=== PATIENT | male | born 1975 | race African-American/Black ===

== ENCOUNTER 2016-08-16 18:59 | Inpatient (IN) | payer OTHER ==
[2016-08-16 19:41] LABS: ABSOLUTE BASOPHILS # (AUTO) 0.1 10^3/uL (0.0-0.2); ABSOLUTE EOSINOPHILS # (AUTO) 0.2 10^3/uL (0.0-0.6); ABSOLUTE LYMPHOCYTES (AUTO) 2.1 10^3/uL (0.5-4.7); ABSOLUTE MONOCYTES (AUTO) 0.4 10^3/uL (0.1-1.4); EOSINOPHILS % (AUTO) 3.1 % (0-6); HEMATOCRIT 45.6 % (37.9-51.0); HEMOGLOBIN 14.9 g/dL (13.5-17.0); HGB HCT DIFFERENCE -0.9; LYMPHOCYTES % (AUTO) 27.2 % (13-45); MEAN CORPUSCULAR HEMOGLOBIN 28.1 pg (27.0-33.4); MEAN CORPUSCULAR HGB CONC 32.7 g/dL (32.0-36.0); MEAN CORPUSCULAR VOLUME 86 fl (80-97); MONOCYTES % (AUTO) 4.5 % (3-13); RED CELL DISTRIBUTION WIDTH 13.9 % (11.5-14.0); SEGMENTED NEUTROPHILS % (AUTO) 64.2 % (42-78); WHITE BLOOD COUNT 7.9 10^3/uL (4.0-10.5)
[2016-08-16] MEDS ORDERED: ASPIRIN 325 MG TABLET PO ONE (19:44)
[2016-08-16 19:47] LABS: PROTHROMBIN TIME 13.5 SEC (11.4-15.4)
[2016-08-16 19:48] LABS: ALBUMIN 4.3 g/dL (3.5-5.0); ANION GAP 11 (5-19); CARBON DIOXIDE 26 mmol/L (22-30); CHLORIDE 105 mmol/L (98-107); CREATININE RESULT 1.11 mg/dL (0.52-1.25); GLUCOSE 101 mg/dL (75-110); PARTIAL THROMBOPLASTIN TIME 34.1 SEC (23.5-35.8); POTASSIUM 4.2 mmol/L (3.6-5.0); SODIUM 141.9 mmol/L (137-145); TOTAL PROTEIN 7.7 g/dL (6.3-8.2)
[2016-08-16 19:50] LABS: ALANINE AMINOTRANSFERASE 79 U/L (21-72); ALKALINE PHOSPHATASE 66 U/L (38-126); ASPARTATE AMINO TRANSFERASE 79 U/L (17-59); BILIRUBIN,DIRECT 0.3 mg/dL (0.0-0.4); BILIRUBIN,TOTAL 0.8 mg/dL (0.2-1.3); BLOOD UREA NITROGEN 18 mg/dL (7-20); CALCIUM 9.9 mg/dL (8.4-10.2); LIPASE 325.9 U/L (23-300)
--- NOTE | 2016-08-16 19:51 | RADIOLOGY REPORT (SQ) ---
EXAM DESCRIPTION: CHEST SINGLE VIEW COMPLETED DATE/TIME: 08/16/2016 7:42 pm REASON FOR STUDY: SOB COMPARISON: 06/09/2014 EXAM PARAMETERS: NUMBER OF VIEWS: One view. TECHNIQUE: Single frontal radiographic view of the chest acquired. RADIATION DOSE: NA LIMITATIONS: None. FINDINGS: LUNGS AND PLEURA: No opacities, masses or pneumothorax. No pleural effusion. MEDIASTINUM AND HILAR STRUCTURES: No masses. Contour normal. HEART AND VASCULAR STRUCTURES: Heart normal in size. Normal vasculature. BONES: No acute findings. HARDWARE: None in the chest. OTHER: No other significant finding. IMPRESSION: NO ACUTE RADIOGRAPHIC FINDING IN THE CHEST. TECHNICAL DOCUMENTATION: JOB ID: [id number]
[2016-08-16 20:00] LABS: TROPONIN I 0.019 ng/mL
[2016-08-16] MEDS ORDERED: METOPROLOL TARTRATE 25 MG TABLET PO ONE (20:07)
[2016-08-16 20:09] LABS: CREATINE KINASE 4254 U/L (55-170)
[2016-08-16] MEDS ORDERED: NORMAL SALINE 1000 ML 1,000 ML IV PRN (20:15)
[2016-08-16 20:52] LABS: URINE BARBITURATES SCREEN NEGATIVE; URINE METHADONE SCREEN NEGATIVE; URINE OPIATES LOW NEGATIVE; URINE PHENCYCLIDINE SCREEN NEGATIVE
--- NOTE | 2016-08-16 21:12 | RADIOLOGY REPORT (SQ) ---
EXAM DESCRIPTION: CTA CHEST COMPLETED DATE/TIME: 08/16/2016 9:01 pm REASON FOR STUDY: SOB COMPARISON: None. TECHNIQUE: CT scan of the chest performed using helical scanning technique with dynamic intravenous contrast injection. Images reviewed with lung, soft tissue and bone windows. Reconstructed coronal and sagittal MPR images reviewed. Additional 3 dimensional post-processing performed to develop Maximal Intensity Projection images (IA P). All images stored on PACS. All CT scanners at this facility use dose modulation, iterative reconstruction, and/or weight based d osing when appropriate to reduce radiation dose to as low as reasonably achievable (ALARA). [facility]: Dose Right [facility]: CareDose [facility]: Dose Right [facility]: Teradose 4D [facility]: [employer] [place] CONTRAST TYPE AND DOSE: contrast/concentration: Isovue 370.00 mg/ml; Total Contrast Delivered: 82.0 ml; Total Saline Delivered: 100.0 ml RENAL FUNCTION: BUN 18, creatinine 1.11 RADIATION DOSE: Up-to-date CT equipment and radiation dose reduction techniques were employed. CTDIv ol: 18.3 - 24.8 mGy. DLP: 701 mGy-cm. . LIMITATIONS: None. FINDINGS: LUNGS AND PLEURA: No masses, infiltrates, pneumothorax. No pleural effusions, calcificati ons. AORTA AND GREAT VESSELS: No aneurysm or dissection. HEART: No pericardial effusion. PULMONARY ARTERIES: No emboli visualized in the main pulmonary arteries or the segmental branches. HILAR AND MEDIASTINAL STRUCTURES: No identified masses or abnormal nodes. HARDWARE: None in the chest. UPPER ABDOMEN: No significant findings. Limited exam. THYROID AND OTHER SOFT TISSUES: No masses. No adenopathy. BONES: No acute or significant finding. 3D MIPS: Confirm above findings. OTHER: No other significant finding. IMPRESSION: NORMAL CTA OF THE CHEST. NO PULMONARY EMBOLI. TECHNICAL DOCUMENTATION: JOB ID: [id number] Quality ID # [id number]: Final reports with documentation of one or more dose reduction techniques (e.g., Au tomated exposure control, adjustment of the mA and/or kV according to patient size, use of iterative reconstruction technique) 2010 [employer]- All Rights Reserved
--- NOTE | 2016-08-16 21:30 | ER Document Report ---
ED Cardiac - General Chief Complaint: Shortness Of Breath Stated Complaint: SHORTNESS OF BREATH,TIGHT CHEST Time Seen by Provider: 08/16/16 19:31 Notes: Patient is a 41-year-old male, past medical history hypertension, HLD, SVT (s/p ablation), presents with 2 hours of left-sided chest tightness and shortness of breath that started while he was at rest. Chest pain did not radiate anywhere. He said that when he arrived, his chest pain improved, but he is still feeling short of breath. He is also having generalized myalgias, worse in his left knee. He started jogging recently. Pt is following with Dr. Chauhan for his prior SVT and HTN and he was started on Nisolvine 20 mg daily, but hasn't picked it up from the pharmacy yet. He denies leg swelling, fevers, cough, nausea, vomiting, cocaine use, hemoptysis, recent travel or rash. TRAVEL OUTSIDE OF THE [place] IN LAST 30 DAYS: No - Related Data Allergies/Adverse Reactions: ibuprofen [Ibuprofen] Allergy (Verified 06/09/14 19:05) Home Medications: Current Home Medications Atorvastatin Calcium [Lipitor 40 mg Tablet] 40 mg PO QHS 08/16/16 [History] Buspirone HCl [Buspar 5 mg Tablet] 7.5 mg PO DAILY 08/16/16 [History] Nisoldipine 20 mg PO DAILY 08/16/16 [History] Past Medical History - General Information source: Patient - Social History Smoking Status: Current Every Day Smoker Chew tobacco use (# tins/day): No Frequency of alcohol use: None Drug Abuse: None Family History: Reviewed & Not Pertinent - Past Medical History Cardiac Medical History: Reports: Hx Hypertension GI Medical History: Reports: Hx Gastroesophageal Reflux Disease - Immunizations Hx Diphtheria, Pertussis, Tetanus Vaccination: No Review of Systems - Review of Systems Notes: REVIEW OF SYSTEMS: CONSTITUTIONAL: -fevers, -chills EENT: -eye pain, -difficulty swallowing, -nasal congestion CARDIOVASCULAR:+chest pain, -syncope. RESPIRATORY: -cough, +SOB GASTROINTESTINAL: -abdominal pain, -nausea, -vomiting, -diarrhea GENITOURINARY: -dysuria, -hematuria MUSCULOSKELETAL: +myalgias, -back pain, -neck pain SKIN: -rash or skin lesions. HEMATOLOGIC: -easy bruising or bleeding. LYMPHATIC: -swollen, enlarged glands. NEUROLOGICAL: -altered mental status or loss of consciousness, -headache, - neurologic symptoms PSYCHIATRIC: -anxiety, -depression. ALL OTHER SYSTEMS REVIEWED AND NEGATIVE. Physical Exam - Vital signs Vitals: Resp Pulse Ox 31 H 97 08/16/16 19:22 08/16/16 19:22 - Notes Notes: PHYSICAL EXAMINATION: GENERAL: Well-appearing, well-nourished and in no acute distress. HEAD: Atraumatic, normocephalic. EYES: Pupils equal round and reactive to light, extraocular movements intact, sclera anicteric, conjunctiva are normal. ENT: nares patent, oropharynx clear without exudates. Moist mucous membranes. NECK: Normal range of motion, supple without lymphadenopathy LUNGS: Breath sounds clear to auscultation bilaterally and equal. No wheezes rales or rhonchi. HEART: Tachycardic, regular rhythm ABDOMEN: Soft, nontender, normoactive bowel sounds. No guarding, no rebound. No masses appreciated. EXTREMITIES: Normal range of motion, no pitting or edema. No cyanosis. NEUROLOGICAL: Cranial nerves grossly intact. Normal speech, normal gait. Normal sensory and motor exams. PSYCH: Normal mood, normal affect. SKIN: Warm, Dry, normal turgor, no rashes or lesions noted. Course - Re-evaluation Re-evalutation: Pt with chest pain, shortness of breath and tachycardia. His EKG shows new right bundle branch block, sinus tachycardia and LVH, which is changed compared to his EKG 06/09/2014. First troponin is negative. CTA ordered due to high concern for PE, but no PE was visualized. CPK is in 4,000's, but his renal function is normal. Cocaine negative. The elevated CPK may be related to recent heavy jogging. Pt has a HEART score of 4. Improved after he was given a dose of metoprolol. We do not have his new BP med, Nisolvine. Pt has never had a stress test. He had an echo at the [facility] last week and was supposed to have an echo at Dr. Chauhan's offica also last week that he was unable to make. Symptoms aypical for aortic dissection at this time. His PMD is Dr. Daugherty and his Security Assessor is Dr. Chauhan. 08/16/16 22:[address] Brunson (Hospitalist) and will bring patient in for Obs Tele. - Vital Signs Vital signs: Temp Pulse Resp BP Pulse Ox 98.4 F 94 25 H 173/104 H 90 L 08/16/16 19:37 08/16/16 19:42 08/16/16 22:02 08/16/16 22:02 08/16/16 22:02 - Laboratory Result Diagrams: 08/16/16 19:23 08/16/16 19:23 Laboratory results interpreted by me: 08/16/16 08/16/16 19:23 19:23 AST 79 H ALT 79 H Creatine Kinase 4254 H NT-Pro-B Natriuret Pep 502 H Lipase 325.9 H - Diagnostic Test Radiology reviewed: Image reviewed, Reports reviewed Radiology results interpreted by me: CXR: NAD CTA Chest: No PE - EKG Interpretation by Me EKG shows normal: Sinus rhythm Rate: Tachycardia - 103 Rhythm: NSR Hayti/QRS: RBBB Voltage: Consistant with LVH When compared to previous EKG there are: Changes noted - 06/09/2014 Discharge - Discharge Clinical Impression: Chest pain Qualifiers: Chest pain type: unspecified Qualified Code(s): R07.9 - Chest pain, unspecified Rhabdomyolysis Qualifiers: Rhabdomyolysis type: non-traumatic Qualified Code(s): M62.82 - Rhabdomyolysis Condition: Stable Disposition: ADMITTED OBSERVATION Admitting Provider: Lluvia Brunson Unit Admitted: Telemetry Referrals: CARLOS CHAUHAN MD [Primary Care Provider] - Follow up as needed
--- NOTE | 2016-08-16 22:29 | RADIOLOGY REPORT (SQ) ---
EXAM DESCRIPTION: KNEE LEFT 3 VIEWS COMPLETED DATE/TIME: 08/16/2016 10:21 pm REASON FOR STUDY: left knee pain when running COMPARISON: None. NUMBER OF VIEWS: Four views. TECHNIQUE: AP, lateral, and both oblique radiographic images acquired of the left knee. LIMITATIONS: None. FINDINGS: MINERALIZATION: Normal. BONES: No acute fracture or dislocation. No worrisome bone lesions. JOINT: No effusion. SOFT TISSUES: No soft tissue swelling. No radio-opaque foreign body. OTHER: No other significant finding. IMPRESSION: NEGATIVE STUDY OF THE LEFT KNEE. NO RADIOGRAPHIC EVIDENCE OF ACUTE INJURY. TECHNICAL DOCUMENTATION: JOB ID: [id number] [employer]- All Rights Reserved
[2016-08-16] MEDS ORDERED: NITROGLYCERIN 5 MG (0.2 MG/HR) PATCH.TD24 TD ONE (22:30)
[2016-08-16] MEDS: NORMAL SALINE 1000 ML 1,000 ML IV SCH ×2 (22:34→23:54)
[2016-08-16] MEDS ORDERED: ENALAPRIL MALEATE 2.5 MG TABLET ONE (22:35)
[2016-08-16 23:25] LABS: CREATINE KINASE MB 1.41 ng/mL (<4.55); TROPONIN I 0.021 ng/mL
--- NOTE | 2016-08-17 00:10 | PDOC H&P ---
History of Present Illness Admission Date/PCP: CARLOS BROWN MD Patient complains of: Shortness of breath and chest pain History of Present Illness: KHUSHI CARTWRIGHT is a 41 year old male with a past medical history of hypertension, dyslipidemia, obesity and obstructive sleep apnea who had been in his usual state of health until approximately 6 hours prior to presentation developing a nonradiating pressure like pain in the left chest associated with shortness of breath worsened by lying down. Improved by sitting up and oxygen. He is currently pain-free patient denies any recent change in medications. Patient has been taking his blood pressure at home with readings of over 200 systolic and 120s diastolic. He states this is his normal pressure for several years. He only takes amlodipine for blood pressure. In the emergency room was found to have a blood pressure of 180/101 and a chest x-ray suggestive of congestive heart failure he receives IV diuretic and referred the hospitalist for admission. Patient admits CPAP compliance, denies [id number] medication use, alcohol or diet supplements. Past Medical History Cardiac Medical History: Reports: Hypertension Pulmonary Medical History: Reports: Sleep Apnea Endocrine Medical History: Reports: Obesity GI Medical History: Reports: Gastroesophageal Reflux Disease Social History Information Source: Patient Lives with: Spouse/Significant other Smoking Status: Former Smoker Frequency of Alcohol Use: Occasional Hx Recreational Drug Use: No Hx Prescription Drug Abuse: No - Advance Directive Resuscitation Status: Full Code Family History Family History: CAD, Hypertension, Other - Congestive heart failure Parental Family History Reviewed: Yes Children Family History Reviewed: Yes Sibling(s) Family History Reviewed.: Yes Medication/Allergy Home Medications: Atorvastatin Calcium [Lipitor 40 mg Tablet] 40 mg PO QHS 08/16/16 Buspirone HCl [Buspar 5 mg Tablet] 7.5 mg PO DAILY 08/16/16 Nisoldipine 20 mg PO DAILY 08/16/16 Allergies/Adverse Reactions: ibuprofen [Ibuprofen] Allergy (Verified 06/09/14 19:05) Review of Systems Constitutional: ABSENT: chills, fever(s), headache(s), weight gain, weight loss Eyes: ABSENT: visual disturbances Ears: ABSENT: hearing changes Cardiovascular: PRESENT: chest pain, dyspnea on exertion, orthropnea. ABSENT: edema, palpitations Respiratory: PRESENT: dyspnea. ABSENT: cough, hemoptysis, sputum Gastrointestinal: ABSENT: abdominal pain, constipation, diarrhea, hematemesis, hematochezia, nausea, vomiting Genitourinary: ABSENT: dysuria, hematuria Musculoskeletal: ABSENT: joint swelling Integumentary: ABSENT: rash, wounds Neurological: ABSENT: abnormal gait, abnormal speech, confusion, dizziness, focal weakness, syncope Psychiatric: ABSENT: anxiety, depression, homidical ideation, suicidal ideation Endocrine: ABSENT: cold intolerance, heat intolerance, polydipsia, polyuria Hematologic/Lymphatic: ABSENT: easy bleeding, easy bruising Physical Exam Vital Signs: Temp Pulse Resp BP Pulse Ox 98.4 F 94 19 183/109 H 95 08/16/16 19:37 08/16/16 19:42 08/16/16 22:32 08/16/16 22:32 08/16/16 22:32 Intake & Output 08/15/16 08/16/16 08/17/16 11:59 11:59 11:59 Weight 105 kg General appearance: PRESENT: cooperative, mild distress Head exam: PRESENT: atraumatic, normocephalic Eye exam: PRESENT: conjunctiva pink, EOMI, PERRLA. ABSENT: scleral icterus Ear exam: PRESENT: normal external ear exam Mouth exam: PRESENT: moist, tongue midline Neck exam: ABSENT: carotid bruit, JVD, lymphadenopathy, thyromegaly Respiratory exam: PRESENT: clear to auscultation juan, crackles, symmetrical, tachypnea. ABSENT: chest wall tenderness, rales, rhonchi, wheezes Cardiovascular exam: PRESENT: gallop, RRR, +S1, +S2, systolic murmur GI/Abdominal exam: PRESENT: normal bowel sounds, soft. ABSENT: distended, guarding, mass, organolmegaly, rebound, tenderness Rectal exam: PRESENT: deferred Extremities exam: PRESENT: calf tenderness - Left calf tenderness following excessive exercise without edema or pain behind the knee, tenderness. ABSENT: + 1 edema, +2 edema Neurological exam: PRESENT: alert, awake, oriented to person, oriented to place , oriented to time, oriented to situation, CN II-XII grossly intact. ABSENT: motor sensory deficit Psychiatric exam: PRESENT: appropriate affect, normal mood. ABSENT: homicidal ideation, suicidal ideation Skin exam: PRESENT: dry, intact, warm. ABSENT: cyanosis, rash Results Laboratory Results: 08/16/16 19:23 08/16/16 19:23 08/16/16 08/16/1617 19:23 19:23 19:50 WBC 7.9 RBC 5.30 Hgb 14.9 Hct 45.6 MCV 86 MCH 28.1 MCHC 32.7 RDW 13.9 Plt Count 310 Seg Neutrophils % 64.2 Lymphocytes % 27.2 Monocytes % 4.5 Eosinophils % 3.1 Basophils % 1.0 Absolute Neutrophils 5.0 Absolute Lymphocytes 2.1 Absolute Monocytes 0.4 Absolute Eosinophils 0.2 Absolute Basophils 0.1 Sodium 141.9 Potassium 4.2 Chloride 105 Carbon Dioxide 26 Anion Gap 11 BUN 18 Creatinine 1.11 Est GFR ( Amer) > 60 Est GFR (Non-Af Amer) > 60 Glucose 101 Lactic Acid 1.3 Calcium 9.9 Total Bilirubin 0.8 AST 79 H ALT 79 H Alkaline Phosphatase 66 Total Protein 7.7 Albumin 4.3 Lipase 325.9 H 08/16/16 08/16/16 08/16/16 19:23 19:23 22:52 Creatine Kinase 4254 H CK-MB (CK-2) 1.41 Troponin I 0.019 0.021 NT-Pro-B Natriuret Pep 502 H Impressions: Chest X-Ray 08/16/16 19:32 IMPRESSION: NO ACUTE RADIOGRAPHIC FINDING IN THE CHEST. Chest/Abdomen CTA 08/16/16 19:32 IMPRESSION: NORMAL CTA OF THE CHEST. NO PULMONARY EMBOLI. Knee X-Ray 08/16/16 21:56 IMPRESSION: NEGATIVE STUDY OF THE LEFT KNEE. NO RADIOGRAPHIC EVIDENCE OF ACUTE INJURY. Assessment & Plan - Diagnosis (1) Hypertensive urgency Is this a current diagnosis for this admission?: YesPlan: Patient on a single agent with suboptimal control will initiate JORGE LUIS inhibitor and hydralazine and consider loop diuretic. (2) Chest pain Qualifiers: Chest pain type: unspecified Qualified Code(s): R07.9 - Chest pain, unspecified Is this a current diagnosis for this admission?: YesPlan: Likely secondary to uncontrolled hypertension however has a EKG suggestive of strain but also with inferior Q-waves, will order Cardiolite cardiac stress test , evaluate TSH and lipid profile. (3) Rhabdomyolysis Qualifiers: Rhabdomyolysis type: non-traumatic Qualified Code(s): M62.82 - Rhabdomyolysis Is this a current diagnosis for this admission?: YesPlan: Secondary to left calf strain following excessive exercise and muscle strain. Symptomatic management, IV fluids reevaluation of total CK and chemistry to verify renal function (4) Obstructive sleep apnea Is this a current diagnosis for this admission?: YesPlan: CPAP at home settings (5) Obesity Is this a current diagnosis for this admission?: YesPlan: We will evaluate a TSH and consider dietitian consult for obesity - Time Time Spent: 30 to 50 Minutes
[2016-08-17] MEDS: HYDRALAZINE HCL INJ/PF 20 MG/1 ML SDV IV PRN ×2 (02:29→13:37)
[2016-08-17] MEDS ORDERED: ACETAMINOPHEN 325 MG TABLET ONE (04:10)
[2016-08-17] MEDS: ACETAMINOPHEN 325 MG TABLET PO PRN ×2 (04:11→15:16)
[2016-08-17] MEDS: NORMAL SALINE 1000 ML 1,000 ML IV SCH (05:11)
[2016-08-17 05:33] LABS: ANION GAP 10 (5-19); BLOOD UREA NITROGEN 17 mg/dL (7-20); CALCIUM 9.4 mg/dL (8.4-10.2); CARBON DIOXIDE 23 mmol/L (22-30); CHLORIDE 109 mmol/L (98-107); CHOLESTEROL 183.23 mg/dL (0-200); CREATININE RESULT 1.07 mg/dL (0.52-1.25); Direct HDL 44 mg/dL (>40); GLUCOSE 94 mg/dL (75-110); POTASSIUM 4.2 mmol/L (3.6-5.0); SODIUM 141.6 mmol/L (137-145); TRIGLYCERIDES 102 mg/dL (<150)
[2016-08-17 05:41] LABS: CREATINE KINASE 2302 U/L (55-170)
[2016-08-17 05:44] LABS: DIRECT LDL 103 mg/dL (<100)
[2016-08-17 05:45] LABS: CREATINE KINASE MB 1.51 ng/mL (<4.55); TROPONIN I 0.022 ng/mL
--- NOTE | 2016-08-17 08:43 | EKG REPORT ---
SEVERITY:- ABNORMAL ECG - SINUS TACHYCARDIA RIGHT BUNDLE BRANCH BLOCK LEFT VENTRICULAR HYPERTROPHY INFERIOR INFARCT, AGE INDETERMINATE : Confirmed by: Candis Lopez MD 17-Aug-2016 08:42:28
[2016-08-17 09:26] LABS: URINE BARBITURATES SCREEN NEGATIVE; URINE METHADONE SCREEN NEGATIVE; URINE OPIATES LOW NEGATIVE; URINE PHENCYCLIDINE SCREEN NEGATIVE
[2016-08-17] MEDS ORDERED: (PENDING PHARMACY ID) (Buspirone Hcl [Buspar 5 Mg Tablet] 7.5 MG) PO SCH (10:00)
[2016-08-17] MEDS: ENALAPRIL MALEATE 2.5 MG TABLET PO SCH (11:47)
[2016-08-17 11:49] LABS: CREATINE KINASE MB 1.53 ng/mL (<4.55); TROPONIN I 0.016 ng/mL
[2016-08-17] MEDS ORDERED: AMINOPHYLLINE INJ/PF 250 MG/10 ML SDV IV ONE (13:28)
[2016-08-17] MEDS ORDERED: REGADENOSON INJ 0.4 MG/5 ML DISP.SYRIN IV ONE (13:28)
--- NOTE | 2016-08-17 13:42 | DRAGON STRESS TEST REPORT ---
INTRAVENOUS LEXISCAN CARDIOLITE STRESS TEST USING SINGLE PHOTON EMMISION COMPUTERIZED TOMOGRAPHIC. DATE OF PROCEDURE: August 17, 2016 INDICATION : Chest pain and shortness of breath CARDIAC RISK FACTORS: Hypertension, dyslipidemia RESTING EKG: Sinus rhythm, right bundle branch block pattern, minor nonspecific T-wave changes STRESS EKG: No significant changes noted with LexiScan bolus REASON FOR TERMINATION: Protocol. PROCEDURE REPORT: Baseline heart rate 88 beats per minute with blood pressure of 179/94. Patient had no significant complaints. Heart rate at 2 minutes post bolus 105 with a blood pressure of 192/104. 3 minutes post bolus heart rate 95 with blood pressure of 190/104. No significant EKG changes were noted. Patient had no significant complaints during the procedure or postprocedure. Patient injected with Aminophyllin 75 mg at 3 minutes or later after Lexiscan bolus. CONCLUSIONS: Normal EKG and hemodynamic response to IV LexiScan. NUCLEAR DATA: At rest the patient was given 14.08 millicuries of technetium 99 sestamibi injected intravenously. As per protocol rest gated SPECT images were obtained. Subsequently the patient was given intravenous LexiScan at a dose of 0.4 mg in 5 mL intravenously, followed by flush with normal saline. Subsequently the stress dose of 45.6 millicuries of technetium 99 sestamibi was injected intravenously. As per protocol stress gated images were obtained. NUCLEAR INTERPRETATION: Both raw and processed data were used for interpretation. Visual, qualitative, computer-generated quantitative data was used. There was good myocardial uptake of technetium compound. Motion artifact and soft tissue attenuations were noted. Increased visceral uptake was noted. Significant diaphragmatic attenuation noted. No definitive areas of transient perfusion defect noted. Probable mild fixed defect distal inferior wall however could well be related to motion artifact and diaphragmatic attenuation. Clinical correlation requested. EKG gated imaging showed LV EF at 24 %, rest and stress gated EF similar visually with severe diffuse hypokinesia. T. I D. ratio was 1.20. Lung heart ratio noted to be within normal limits 0.26. No significant extracardiac and abnormal radiotracer activities were noted. RV free wall uptake was noted to be mildly increased. IMPRESSION: Also refer to comments under nuclear interpretation. Also test results needs to be interpreted in the context of pretest probability. 1. There is no definitive scintigraphic evidence of LexiScan induced myocardial ischemia. Significant diaphragmatic attenuation reduces confidence. 2. Probable mild fixed defect distal inferior wall however could well be related to motion artifact and diaphragmatic attenuation. Clinical correlation requested. 3. EKG gated imaging shows left ejection fraction of approximately 24 %. 4. Clinical correlation requested as occasionally single vessel disease or balanced ischemia could be missed. In approximately 10% of the cases Lexiscan may not cause adequate vasodilatory stress. RECOMMENDATIONS: Aggressive risk factor modification, medical therapy. May consider heart catheterization if significant symptoms because of significantly depressed LVEF. Clinical correlation with echocardiogram derived ejection fraction. Inability to exercise by itself can lead to increased cardiovascular event risks. Consider cardiology consultation and or follow-up if clinically indicated. I AM AVAILABLE FOR CARDIOLOGY CONSULTATION AND FOLLOWUP IF REQUESTED BY PMD Pool Santiago M.D., IAN Policy Service Coordinator mannequin mold maker, Board certified in cardiovascular diseases, Nuclear cardiology, Echocardiography Cardiac CT and cardiac MRI Ph. [phone] [facility]ALTH[facility]umiko
--- NOTE | 2016-08-17 14:49 | PDOC PROGRESS REPORT ---
Subjective Progress Note for:: 08/17/16 Subjective:: The patient is an extremely pleasant 41-year-old -[place] male with a past medical history significant for hypertension, dyslipidemia, obesity and obstructive sleep apne on CPAP therapy at home for which he is compliant a. He presented to the emergency room with nonradiating pressure and pain in the left anterior chest associated with shortness of breath. His shortness of breath was worse when he lied down. In the emergency room he was found to have evidence of accelerated hypertension. He was placed in observation in the hospital. Today he had a Cardiolite stress test performed which reveals a diminished ejection fraction but otherwise was unremarkable. He also had a 2D cardio cardiac echo echocardiogram performed which has not yet been read. I spoke to cardiology after his stress test and they would like to keep him in the hospital overnight for consultation as well as trying to get his blood pressure under better control. I discussed this with the patient and his and they are agreeable. Today when I saw the patient he is resting comfortably in the bed. He states his chest pressure is much improved. He did receive IV Lasix in the emergency room and he has had no further issues with shortness of breath. He is able to lay flat at this point. He has had no fever or chills overnight. No heart palpitations that he is aware of. He does not have a cough or any upper respiratory infection. He denies nausea, vomiting or diarrhea. No dysuria, frequency or hematuria. Physical Exam Vital Signs: Temp Pulse Resp BP Pulse Ox 97.9 F 80 16 177/96 H 100 08/17/16 12:30 08/17/16 12:30 08/17/16 12:30 08/17/16 12:30 08/17/16 12:30 General appearance: PRESENT: no acute distress, obese, well-developed, well- nourished Head exam: PRESENT: atraumatic, normocephalic Mouth exam: PRESENT: moist, neck supple Respiratory exam: PRESENT: clear to auscultation juan. ABSENT: accessory muscle use, chest wall tenderness, rales, rhonchi, wheezes Cardiovascular exam: PRESENT: RRR, +S1, +S2. ABSENT: diastolic murmur, gallop, rubs, systolic murmur GI/Abdominal exam: PRESENT: normal bowel sounds, soft. ABSENT: tenderness Extremities exam: ABSENT: calf tenderness, clubbing, pedal edema Musculoskeletal exam: PRESENT: ambulatory Neurological exam: PRESENT: alert, awake, oriented to person, oriented to place , oriented to time, oriented to situation Psychiatric exam: PRESENT: appropriate affect Skin exam: PRESENT: dry, warm Results Laboratory Results: 08/17/16 11:04 CK-MB (CK-2) 1.53 Troponin I 0.016 Impressions: Chest X-Ray 08/16/16 19:32 IMPRESSION: NO ACUTE RADIOGRAPHIC FINDING IN THE CHEST. Chest/Abdomen CTA 08/16/16 19:32 IMPRESSION: NORMAL CTA OF THE CHEST. NO PULMONARY EMBOLI. Knee X-Ray 08/16/16 21:56 IMPRESSION: NEGATIVE STUDY OF THE LEFT KNEE. NO RADIOGRAPHIC EVIDENCE OF ACUTE INJURY. Assessment & Plan - Diagnosis (1) Chest pain Qualifiers: Chest pain type: unspecified Qualified Code(s): R07.9 - Chest pain, unspecified Is this a current diagnosis for this admission?: YesPlan: The patient's chest discomfort is likely due to accelerated hypertension. His blood pressures remain significantly high. I am going to keep him in the hospital overnight to see if we can make some progress with this. His echocardiogram has not yet been read that he may have a somewhat diminished ejection fraction. Cardiology is being consulted. (2) Hypertensive urgency Is this a current diagnosis for this admission?: YesPlan: I spoke to Dr. Santiago from the cardiology service to has agreed to come see the patient here in the hospital. He will be started on carvedilol and amlodipine today. He will continue JORGE LUIS inhibitor that was started at the time of admission. Hopefully we can get his blood pressure a little bit better before he goes home. I have had a long discussion with the patient and his regarding the need to get this under better control. (3) Obesity Is this a current diagnosis for this admission?: YesPlan: Certainly he would benefit from weight loss. (4) Obstructive sleep apnea Is this a current diagnosis for this admission?: YesPlan: He is compliant with sleep CPAP therapy. He will likely need a repeat sleep study as an outpatient as his settings may need titration. Dr. Santiago can do this as an outpatient. (5) Rhabdomyolysis Qualifiers: Rhabdomyolysis type: non-traumatic Qualified Code(s): M62.82 - Rhabdomyolysis Is this a current diagnosis for this admission?: YesPlan: The patient had an elevated CK level at the time of admission. He did receive quite a bit of IV fluid. I stopped at this morning due to concerns that the patient may become volume overloaded. His repeat CK level was improved. I will check a CK level in the morning. He may require some further gentle hydration prior to leaving the hospital. For now we will hold off - Time Time Spent with patient: 25-34 minutes Medications reviewed and adjusted accordingly: Yes Anticipated discharge: Home Disposition: Inpatient hospitalization remains necessary. I believe this patient needs to be kept overnight again to get his blood pressure under better control. He was receiving IV fluids for rhabdomyolysis and he may require further fluid hydration. Due to concerns of decreased ejection fraction I am holding off on IV fluids tonight. He also needs cardiology evaluation.
[2016-08-17] MEDS ORDERED: CARVEDILOL 6.25 MG TABLET PO ONE (15:15)
[2016-08-17] MEDS ORDERED: AMLODIPINE BESYLATE 5 MG TABLET PO ONE (15:15)
--- NOTE | 2016-08-17 15:45 | Physician Advisory Note ---
Physician Advisor ProgressNote .: Pursuant to the plan for [facility], I have reviewed the medical record for this patient. Physician Advisor Statement: Excellent documentation of reason for needing continued hospital care. Please consider documentin. "Hypertensive Urgency" or "Hypertensive Emergency producing CP/___" or "Hypertensive Crisis": - "Hypertensive Urgency" requires urgent tx & BP's systolic >180 or diastolic >120. - "Hypertensive Emergency" requires those 2 points + symptoms &/or end-organ effects. - "Hypertensive Crisis" = umbrella term including both of the above 2 dx.s. Discussion: "Accelerated HTN" & "malignant HTN" were old terms that were the only ones recognized by the previous ICD-10 coding system as being something other than benign HTN, so documentation had to include them in order to get credit for the appropriate severity of illness. - However, as of 11/28/15, multiple codes were changed, requiring changes in how we document. Now: "Accelerated HTN" or malignant HTN is taken to mean the same thing as "benign HTN". If pt has mHU727+ &/or lKR408+ , without associated sx "HTNive urgency" is now the accepted term. If pt has jWL708+ &/or vTV656+ , & sx of possible organ damage, such as TOLENTINO, CP, SOB, acute exac of CHF, ... "Hypertensive emergency" is now the accepted term, & we need documentation of what s/s were caused by the HTN. Thanks for your help (& patience)! CK
[2016-08-17] MEDS ORDERED: NITROGLYCERIN 5 MG (0.2 MG/HR) PATCH.TD24 TD SCH (22:00)
[2016-08-18] MEDS: ACETAMINOPHEN 325 MG TABLET PO PRN (02:52)
[2016-08-18] MEDS: HYDRALAZINE HCL INJ/PF 20 MG/1 ML SDV IV PRN (03:55)
[2016-08-18] MEDS ORDERED: BUTALB/ACETAMINOPHEN/CAFFEINE 1 TAB EACH PO PRN (09:01)
[2016-08-18 09:03] LABS: ABSOLUTE BASOPHILS # (AUTO) 0.1 10^3/uL (0.0-0.2); ABSOLUTE EOSINOPHILS # (AUTO) 0.2 10^3/uL (0.0-0.6); ABSOLUTE LYMPHOCYTES (AUTO) 1.3 10^3/uL (0.5-4.7); ABSOLUTE MONOCYTES (AUTO) 0.4 10^3/uL (0.1-1.4); ABSOLUTE NEUT (AUTO) 5.9 10^3/uL (1.7-8.2); BASOPHILS % (AUTO) 1.2 % (0-2); EOSINOPHILS % (AUTO) 2.1 % (0-6); HEMATOCRIT 43.5 % (37.9-51.0); HEMOGLOBIN 14.2 g/dL (13.5-17.0); HGB HCT DIFFERENCE -0.9; LYMPHOCYTES % (AUTO) 16.2 % (13-45); MEAN CORPUSCULAR HEMOGLOBIN 27.9 pg (27.0-33.4); MEAN CORPUSCULAR HGB CONC 32.6 g/dL (32.0-36.0); MEAN CORPUSCULAR VOLUME 86 fl (80-97); MONOCYTES % (AUTO) 4.7 % (3-13); RED BLOOD COUNT 5.07 10^6/uL (4.35-5.55); RED CELL DISTRIBUTION WIDTH 14.2 % (11.5-14.0); SEGMENTED NEUTROPHILS % (AUTO) 75.8 % (42-78); WHITE BLOOD COUNT 7.7 10^3/uL (4.0-10.5)
[2016-08-18] MEDS: ENALAPRIL MALEATE 2.5 MG TABLET PO SCH (09:17)
[2016-08-18 09:21] LABS: ALANINE AMINOTRANSFERASE 65 U/L (21-72); ALBUMIN 4.3 g/dL (3.5-5.0); ALKALINE PHOSPHATASE 71 U/L (38-126); ANION GAP 11 (5-19); ASPARTATE AMINO TRANSFERASE 35 U/L (17-59); BILIRUBIN,DIRECT 0.3 mg/dL (0.0-0.4); BILIRUBIN,TOTAL 0.8 mg/dL (0.2-1.3); BLOOD UREA NITROGEN 15 mg/dL (7-20); CARBON DIOXIDE 22 mmol/L (22-30); CHLORIDE 106 mmol/L (98-107); CREATINE KINASE 844 U/L (55-170); CREATININE RESULT 1.02 mg/dL (0.52-1.25); GLUCOSE 98 mg/dL (75-110); POTASSIUM 4.5 mmol/L (3.6-5.0); SODIUM 139.3 mmol/L (137-145); TOTAL PROTEIN 7.6 g/dL (6.3-8.2)
--- NOTE | 2016-08-18 09:22 | XCELERA REPORT ---
[address] [address] Transthoracic Echocardiogram Report Name: KHUSHI CARTWRIGHT Age: 41 yrs Gender: Male : 1975 Patient Status: Inpatient Patient Location: [id number]\S\419\S\A Study Date: 08/17/2016 11:14 AM Height: 71 in Weight: 220 lb BSA: 2.2 m2 Procedure: A complete two-dimensional transthoracic echocardiogram was performed (2D, M-mode, spectral and color flow Doppler). The study was technically adequate with some images being suboptimal in quality. Reason For Study: baron horne, r/o chf Ordering Physician: NI JONES Performed By: Marjorie Coleman Interpretation Summary LV EF is 50% Left ventricular systolic function is borderline reduced. There is mild concentric left ventricular hypertrophy. The left ventricle is grossly normal size. Doppler measurements suggest pseudonormalized left ventricular relaxation, which is associated with grade II/IV or mild to moderate diastolic dysfunction There is borderline global hypokinesis of the left ventricle. The right ventricular systolic function is normal. The right ventricle is normal in size, thickness and function The left atrium is mildly dilated. The right atrium is normal in size There is a mild to moderate amount of mitral regurgitation There is no mitral valve stenosis. There is no aortic valve stenosis No aortic regurgitation is present. There is a trace or physiologic amount of tricuspid regurgitation Tricuspid regurgitation jet envelope not well defined to measure RV systolic pressure accurately. The aortic root is not well visualized but is probably normal size. The inferior vena cava appeared normal and decreased < 50% with respiration (RAP 10-15 mmHg) Minimal pericardial effusion. MMode/2D Measurements \T\ Calculations RVDd: 3.4 cm LVIDd: 5.4 cm FS: 26.7 % Ao root diam: 2.8 cm IVSd: 0.92 cm LVIDs: 3.9 cm EDV(Teich): 140.1 ml LVPWd: 0.91 cm ESV(Teich): 67.7 ml Ao root area: 6.0 cm2 EF(Teich): 51.7 % LA dimension: 3.9 cm Doppler Measurements \T\ Calculations MV E max susan: MV P1/2t max susan: Ao V2 max: LV V1 max P.1 cm/sec 107.6 cm/sec 123.5 cm/sec 4.9 mmHg MV A max susan: MV P1/2t: 47.3 msec Ao max PG: LV V1 max: 56.3 cm/sec 6.1 mmHg 110.6 cm/sec MV E/A: 1.9 MVA(P1/2t): 4.7 cm2 MV dec slope: 666.6 cm/sec2 MV dec time: 0.16 sec PA V2 max: TR max susan: 71.1 cm/sec 256.5 cm/sec PA max PG: TR max P.3 mmHg 2.0 mmHg Left Ventricle The left ventricle is grossly normal size. There is mild concentric left ventricular hypertrophy. Left ventricular systolic function is borderline reduced. LV EF is 50%. Doppler measurements suggest pseudonormalized left ventricular relaxation, which is associated with grade II/IV or mild to moderate diastolic dysfunction. There is borderline global hypokinesis of the left ventricle. Right Ventricle The right ventricle is normal in size, thickness and function. There is normal right ventricular wall thickness. The right ventricular systolic function is normal. Atria The right atrium is normal in size. The left atrium is mildly dilated. Interarterial septum not well visualized and not well dopplered. Cannot comment on ASD/PFO presence. Mitral Valve The mitral valve leaflets are sclerotic, but show no functional abnormalities. There is no mitral valve stenosis. There is a mild to moderate amount of mitral regurgitation. Aortic Valve The aortic valve is grossly normal. There is no aortic valve stenosis. No aortic regurgitation is present. Tricuspid Valve The tricuspid valve is not well visualized, but is grossly normal. There is no tricuspid stenosis. There is a trace or physiologic amount of tricuspid regurgitation. Tricuspid regurgitation jet envelope not well defined to measure RV systolic pressure accurately. Pulmonic Valve The pulmonic valve is not well visualized. Great Vessels The aortic root is not well visualized but is probably normal size. The inferior vena cava appeared normal and decreased < 50% with respiration (RAP 10-15 mmHg). Effusions Minimal pericardial effusion. : NI JONES > Pool Santiago
[2016-08-18] MEDS ORDERED: CARVEDILOL 6.25 MG TABLET PO SCH (10:00)
[2016-08-18] MEDS ORDERED: AMLODIPINE BESYLATE 5 MG TABLET PO SCH (10:00)
[2016-08-18] MEDS ORDERED: HYDRALAZINE HCL INJ/PF 20 MG/1 ML SDV IV PRN (10:05)
--- NOTE | 2016-08-18 10:48 | PDOC DISCHARGE SUMMARY ---
General - Admit/Disc Date/PCP Admission Date/Primary Care Provider: 08/17/16 08:00 CARLOS BROWN MD Network Operations Manager: Dr. Santiago Discharge Date: 08/18/16 - Discharge Diagnosis (1) Chest pain Is this a current diagnosis for this admission?: YesSummary: Likely secondary to uncontrolled hypertension. Resolved (2) Hypertensive emergency Summary: At the time of admission the patient had markedly uncontrolled blood pressure. He had evidence of chest pain and the severe headache. The patient has been started on amlodipine 10 mg p.o. daily, carvedilol 6.25 mg every 12 hours as well as enalapril. He will continue his hydrochlorothiazide at the time of discharge. He is nowhere close to goal at the time of discharge and further titration will be necessary by his primary care physician (3) Acute CHF (congestive heart failure) Summary: Initially when the patient came to the hospital he was significantly short of breath. He was given IV Lasix in the emergency room. He had a mildly elevated BNP. Echocardiogram reveals grade 2 diastolic dysfunction as well as borderline reduced systolic function. This would be an acute diastolic congestive heart failure exacerbation which has since resolved. He was evaluated by cardiology who is going to follow him up as an outpatient. (4) Obesity Is this a current diagnosis for this admission?: YesSummary: Certainly it would be in his best interest to lose weight. (5) Obstructive sleep apnea Is this a current diagnosis for this admission?: YesSummary: He will follow-up with cardiology as an outpatient. Dr. Munoz plans to repeat a sleep study. (6) Rhabdomyolysis Is this a current diagnosis for this admission?: YesSummary: The patient initially received IV fluid hydration and his CK number is down. His IV fluids were stopped due to concerns of worsening his congestive heart failure. He is much improved on the day of discharge (7) Headache Summary: . Secondary to uncontrolled hypertension. The patient will be discharged with a prescription for Fioricet. - Additional Information Resuscitation Status: Full Code Discharge Diet: Cardiac, Other (Comments) - 2g Na Discharge Activity: Balance Activity w/Rest - check BP 3 x daily and take diary to f/u appt Home Medications: Atorvastatin Calcium [Lipitor 40 mg Tablet] 40 mg PO QHS 08/16/16 Buspirone HCl [Buspar 5 mg Tablet] 7.5 mg PO DAILY 08/16/16 Hydrochlorothiazide 25 mg PO DAILY 08/17/16 Omeprazole 40 mg PO DAILYP PRN 08/17/16 Amlodipine Besylate [Norvasc 10 mg Tablet] 10 mg PO DAILY #30 tablet 08/18/16 Butalb/Acetaminophen/Caffeine [Fioricet (50-325-40 mg) Tablet] 1 tab PO Q6HP PRN #30 each 08/18/16 Carvedilol [Coreg 6.25 mg Tablet] 6.25 mg PO DAILY #30 tablet 08/18/16 Enalapril Maleate [Vasotec 5 mg Tablet] 5 mg PO DAILY #30 tablet 08/18/16 History of Present Illness History of Present Illness: KHUSHI CARTWRIGHT is a 41 year old male who presented to the emergency room with chest discomfort and shortness of breath. Hospital Course Hospital Course: The patient is an extremely pleasant 41-year-old -[place] male with a past medical history significant for hypertension, dyslipidemia, obesity and obstructive sleep apnea. He presented to the emergency room with nonradiating pressure and pain in the left anterior chest with shortness of breath. His shortness of breath was worse when he lay down. In the emergency room he was given IV Lasix with resolution of his chest discomfort. BNP was elevated in the 500s at the time of admission. He was admitted to the hospital. His serial troponins remained negative. He underwent a Cardiolite stress test which revealed no evidence of reversible ischemia. This test did reveal a severely diminished ejection fraction. He had a 2D echocardiogram which did not confirm his low ejection fraction. He was found to have borderline reduced ejection fraction of 50% as well as grade 2 diastolic dysfunction. He was seen by cardiology who is going to follow the patient as an outpatient. He likely will need a repeat sleep study. Multiple blood pressure medications were added to his regimen as above. This will need to be titrated as we go along. I have had long discussions with the patient and his regarding the need to get his blood pressure under better control. At this point it is felt that he can safely be discharged home. His chest discomfort has resolved and his blood pressure while nowhere close to goal is much improved. He will follow-up with his primary care provider as well as cardiology as an outpatient. Physical Exam Vital Signs: Temp Pulse Resp BP Pulse Ox 97.4 F 87 20 177/91 H 100 06/22/17 07:44 08/18/16 07:44 08/18/16 07:44 08/18/16 07:44 08/18/16 07:44 Intake & Output 08/17/16 08/18/16 08/19/16 06:59 06:59 06:59 Intake Total 2571 Output Total 2400 Balance 171 Weight 100 kg General appearance: PRESENT: no acute distress, obese, well-developed, well- nourished Head exam: PRESENT: atraumatic, normocephalic Mouth exam: PRESENT: moist, tongue midline Respiratory exam: PRESENT: clear to auscultation juan. ABSENT: rales, rhonchi, wheezes Cardiovascular exam: PRESENT: RRR. ABSENT: diastolic murmur, rubs, systolic murmur GI/Abdominal exam: PRESENT: normal bowel sounds, soft. ABSENT: distended, guarding, mass, organolmegaly, rebound, tenderness Extremities exam: PRESENT: full ROM. ABSENT: calf tenderness, clubbing, pedal edema Neurological exam: PRESENT: alert, awake, oriented to person, oriented to place , oriented to time, oriented to situation, CN II-XII grossly intact. ABSENT: motor sensory deficit Psychiatric exam: PRESENT: appropriate affect, normal mood. ABSENT: homicidal ideation, suicidal ideation Skin exam: PRESENT: dry, intact, warm. ABSENT: cyanosis, rash Results Laboratory Results: 08/18/16 08:40 08/18/16 08:40 08/18/16 08/18/16 08/18/16 08:40 08:40 08:40 WBC 7.7 RBC 5.07 Hgb 14.2 Hct 43.5 MCV 86 MCH 27.9 MCHC 32.6 RDW 14.2 H Plt Count 330 Seg Neutrophils % 75.8 Lymphocytes % 16.2 Monocytes % 4.7 Eosinophils % 2.1 Basophils % 1.2 Absolute Neutrophils 5.9 Absolute Lymphocytes 1.3 Absolute Monocytes 0.4 Absolute Eosinophils 0.2 Absolute Basophils 0.1 Sodium 139.3 Potassium 4.5 Chloride 106 Carbon Dioxide 22 Anion Gap 11 BUN 15 Creatinine 1.02 Est GFR ( Amer) > 60 Est GFR (Non-Af Amer) > 60 Glucose 98 Calcium 10.0 Magnesium 2.1 Total Bilirubin 0.8 AST 35 ALT 65 Alkaline Phosphatase 71 Total Protein 7.6 Albumin 4.3 06/21/17 06/22/17 06/22/17 11:04 08:40 08:40 Creatine Kinase 844 H CK-MB (CK-2) 1.53 Troponin I 0.016 NT-Pro-B Natriuret Pep 341 H Impressions: Chest X-Ray 08/16/16 19:32 IMPRESSION: NO ACUTE RADIOGRAPHIC FINDING IN THE CHEST. Chest/Abdomen CTA 08/16/16 19:32 IMPRESSION: NORMAL CTA OF THE CHEST. NO PULMONARY EMBOLI. Knee X-Ray 08/16/16 21:56 IMPRESSION: NEGATIVE STUDY OF THE LEFT KNEE. NO RADIOGRAPHIC EVIDENCE OF ACUTE INJURY. Qualifiers PATEINT BEING DISCHARGED WITH ANY OF THE FOLLOWING DIAGNOSIS?: No Plan Discharge Plan: The patient will be discharged home today in stable condition. Time Spent: Greater than 30 Minutes
[2016-08-18] MEDS ORDERED: AMLODIPINE BESYLATE 10 MG TABLET PO ONE (11:30)
[2016-08-18] MEDS ORDERED: ENALAPRIL MALEATE 5 MG TABLET PO ONE (11:30)
--- NOTE | 2016-08-18 12:39 | PDOC CONSULTATION ---
Consultation Consult Date: 08/17/16 Attending physician:: GOLDY GARDNER Consult reason:: Chest pain and shortness of breath History of Present Illness Admission Date/PCP: 08/17/16 08:00 CARLOS CHAUHAN MD Patient complains of: Shortness of breath and chest pain History of Present Illness: KHUSHI CARTWRIGHT is a 41 year old male who presented to the emergency room with chest discomfort and shortness of breath. Patient is a 41-year-old male, past medical history hypertension, HLD, SVT (s/p ablation), presents with 2 hours of left-sided chest tightness and shortness of breath that started while he was at rest. Chest pain did not radiate anywhere. He said that when he arrived, his chest pain improved, but he is still feeling short of breath. He is also having generalized myalgias, worse in his left knee. He started jogging recently. Pt is following with Dr. Chauhan for his prior SVT and HTN. Patient on questioning does give history of loud snoring, difficult to control blood pressure. Patient had a stress test yesterday which showed depressed LVEF. Subsequently a 2D echo was ordered. I was asked to evaluate patient because of abnormal stress test. Patient on questioning denied any recurrence of chest pain. His cardiac enzymes were reviewed and they were noted to be all unremarkable. Past Medical History Cardiac Medical History: Reports: Hypertension Pulmonary Medical History: Reports: Sleep Apnea Endocrine Medical History: Reports: Obesity GI Medical History: Reports: Gastroesophageal Reflux Disease Past Surgical History Past Surgical History: Reports: None Social History Information Source: Patient Lives with: Spouse/Significant other Smoking Status: Former Smoker Frequency of Alcohol Use: Occasional Hx Recreational Drug Use: No Hx Prescription Drug Abuse: No - Advance Directive Resuscitation Status: Full Code Surrogate healthcare decision maker:: Patient's spouse Family History Family History: CAD, Hypertension, Other - Congestive heart failure Parental Family History Reviewed: Yes Children Family History Reviewed: Yes Sibling(s) Family History Reviewed.: Yes Medication/Allergy Home Medications: Atorvastatin Calcium [Lipitor 40 mg Tablet] 40 mg PO QHS 08/16/16 Buspirone HCl [Buspar 5 mg Tablet] 7.5 mg PO DAILY 08/16/16 Hydrochlorothiazide 25 mg PO DAILY 08/17/16 Omeprazole 40 mg PO DAILYP PRN 08/17/16 Amlodipine Besylate [Norvasc 10 mg Tablet] 10 mg PO DAILY #30 tablet 08/18/16 Butalb/Acetaminophen/Caffeine [Fioricet (50-325-40 mg) Tablet] 1 tab PO Q6HP PRN #30 each 08/18/16 Carvedilol [Coreg 6.25 mg Tablet] 6.25 mg PO DAILY #30 tablet 08/18/16 Enalapril Maleate [Vasotec 5 mg Tablet] 5 mg PO DAILY #30 tablet 08/18/16 Allergies/Adverse Reactions: ibuprofen [Ibuprofen] Allergy (Verified 06/09/14 19:05) Review of Systems Review of Systems: Please see history of present illness and past medical history as wall. Constitutional: No fever or chills reported. Head : No recent chronic headaches, recent head injury. Eyes: No recent eye pain, diplopia, redness, discharge, acute visual changes. Ears: No recent chronic ear pain, acute hearing loss, ear discharge. Oral cavity: No recent ulcerations, bleeding, oral cavity discomfort. Neck: No recent acute neck pain reported. Hematologic: No recent easy bruising or bleeding or hematologic malignancy reported. Lymphatic: No recent lymphatic malignancy, chronic lymphadenopathy reported yet Cardiovascular system review: See history of present illness. Chest pain as noted above. History of SVT. Respiratory system review: No recent chronic cough, hemoptysis, blood clots in the lungs reported. Mild Shortness of breath on exertion. History of loud snoring Gastrointestinal system review: Negative for any recent acute or chronic abdominal pain, hematemesis, melena, recent change in bowel habits. Genitourinary system review: No recent acute or chronic hematuria, flank pain, UTI etc. reported. Skin system review: Negative for any recent abnormal bruising, no rash, no pruritus reported. Neurologic: No prior history of strokes, mini strokes, seizure disorder. Psychologic: No history of major psychosis or major depression reported. Musculoskeletal: Minor aches and pains reported. No acute joint swelling reported. Endocrine: No recent polyuria, polydipsia, recent heat or cold intolerance. Physical Exam Vital Signs: Temp Pulse Resp BP Pulse Ox 98.3 F 90 16 169/88 H 100 08/17/16 15:31 08/17/16 15:31 08/17/16 15:31 08/17/16 15:31 08/17/16 15:31 Intake & Output 08/16/16 08/17/16 08/18/16 06:59 06:59 06:59 Intake Total 1759 Output Total 1900 Balance -141 Exam: GENERAL: well-nourished and in no acute distress. Alert and oriented x3 HEAD: Atraumatic, normocephalic. EYES: Pupils equal round and reactive to light, extraocular movements intact, sclera anicteric, conjunctiva are normal. ENT: TMs normal, nares patent, oropharynx clear without exudates. Moist mucous membranes. No oral ulcerations or bleeding gums noted NECK: supple without lymphadenopathy. Trachea is central. No cervical or axillary lymphadenopathy noted. Carotids are 2+, JVD WNL LUNGS: Respiration seems nonlabored, no significant accessory muscle action noted. Breath sounds clear to auscultation bilaterally and equal noted. No wheezes rales or rhonchi noted. No significant dullness noted on percussion. CHEST: Palpation of the chest wall shows no significant chest wall tenderness. No other significant abnormalities noted. 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 ABDOMEN: Soft, no significant tenderness appreciated, normoactive bowel sounds. No guarding, no rebound. No rigidity noted . No masses appreciated. EXTREMITIES: Pedal pulses are 1-2+, no calf tenderness noted. No clubbing or cyanosis.trace to 1+ pedal edema noted NEUROLOGICAL: Focused neurological exam showed no significant neurologic deficit. Normal speech, no focal weakness appreciated. PSYCH: Normal mood, normal affect. Judgment and insight within normal limits. SKIN: No significant ecchymosis, rash, ulcerations or signs of pruritus noted. MUSCULOSKELETAL EXAM: No significant joint swelling noted. Results Laboratory Results: 08/17/16 11:04 CK-MB (CK-2) 1.53 Troponin I 0.016 EKG Comments: Sinus rhythm with right bundle branch block pattern. Impressions: Chest X-Ray 08/16/16 19:32 IMPRESSION: NO ACUTE RADIOGRAPHIC FINDING IN THE CHEST. Chest/Abdomen CTA 08/16/16 19:32 IMPRESSION: NORMAL CTA OF THE CHEST. NO PULMONARY EMBOLI. Knee X-Ray 08/16/16 21:56 IMPRESSION: NEGATIVE STUDY OF THE LEFT KNEE. NO RADIOGRAPHIC EVIDENCE OF ACUTE INJURY. Status: Image reviewed by me - Nuclear stress test images reviewed and discussed with the patient. 2D echo results reviewed and discussed with the patient. Assessment & Plan - Diagnosis (1) Chest pain Qualifiers: Chest pain type: unspecified Qualified Code(s): R07.9 - Chest pain, unspecified Is this a current diagnosis for this admission?: Yes (2) Headache Qualifiers: Headache type: unspecified Intractability: not intractable Is this a current diagnosis for this admission?: Yes (3) Hypertensive emergency Is this a current diagnosis for this admission?: Yes (4) Obesity Qualifiers: Obesity severity: unspecified obesity severity Is this a current diagnosis for this admission?: Yes (5) Obstructive sleep apnea Is this a current diagnosis for this admission?: Yes (6) Elevated brain natriuretic peptide (BNP) level Is this a current diagnosis for this admission?: Yes - Notes Notes: Nuclear stress test results reviewed with the patient. 2D echo results reviewed with the patient. 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 Twelve-lead EKG, these were reviewed. Chest x-ray: Results reviewed. Medications: These were reviewed. Labs: These were reviewed. Treatment/care plan: This was reviewed and discussed with involved personnel in the care of this patient and patient. Chest pain: Most likely related to severe hypertension. Patient claims that during his ablation procedure 2 years ago, he had a heart catheterization during which no significant blockages were noted. I have requested the reports to be obtained. Patient has been advised aggressive risk factor modification and medical management. Headaches: Possibly related to underlying sleep apnea syndrome and also severe hypertension. Hypertensive emergency: Patient was noted to have severe hypertension and possibly headache related to it. Recommend good control of blood pressure. Blood pressure goal is 135/85 or less in this young gentleman. Obesity: Patient has been encouraged in weight loss. Obstructive sleep apnea: Patient currently is not compliant on not on therapy. Patient can follow-up with me in this regard. Elevated BNP level: Chest x-ray negative for CHF findings. Possibly related to severe hypertension causing left ventricular stretch. May consider chlorthalidone for better control of blood pressure. - Time Time Spent: 50 to 70 Minutes - CODE STATUS was discussed, patient remains full code. Surrogate decision-maker unchanged. Multiple medical problems were addressed. More than 50% of the time spent coordinating care, discussing management plans with involved caregivers. Management plans discussed with involved personnels. Medical decision making was of moderate to high complexity , patient's has multiple comorbidities. Medications reviewed and adjusted accordingly: Yes
[2016-08-18 12:57] VITALS: BP 170/89
--- NOTE | 2016-08-18 19:24 | PDOC PROGRESS REPORT ---
Subjective Progress Note for:: 08/18/16 Subjective:: Patient seems to be doing better with gradual improvement. Pt is denying any chest arm or neck discomfort. Patient denying any PND, orthopnea. Patient denied any sustained palpitations, dizziness, syncope, near syncope. Patient denying any fever chills. Patient denying any other significant discomfort. Patient is maintaining sinus rhythm. Patient however complaining of headache. Blood pressure still elevated. Review of systems: Rest review of systems negative. Medications: Medications have been reviewed. Physical Exam Vital Signs: Temp Pulse Resp BP Pulse Ox 98.1 F 81 20 162/96 H 99 08/18/16 11:24 08/18/16 11:24 08/18/16 11:24 08/18/16 11:24 08/18/16 11:24 Intake & Output 08/17/16 08/18/16 08/19/16 06:59 06:59 06:59 Intake Total 2571 Output Total 2400 Balance 171 Weight 100 kg Exam: GENERAL: well-nourished and in no acute distress. Alert and oriented x3 HEAD: Atraumatic, normocephalic. EYES: Pupils equal round and reactive to light, extraocular movements intact, sclera anicteric, conjunctiva are normal. ENT: TMs normal, nares patent, oropharynx clear without exudates. Moist mucous membranes. No oral ulcerations or bleeding gums noted NECK: supple without lymphadenopathy. Trachea is central. No cervical or axillary lymphadenopathy noted. Carotids are 2+, JVD WNL LUNGS: Respiration seems nonlabored, no significant accessory muscle action noted. Breath sounds clear to auscultation bilaterally and equal noted. No wheezes rales or rhonchi noted. No significant dullness noted on percussion. CHEST: Palpation of the chest wall shows no significant chest wall tenderness. No other significant abnormalities noted. 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 ABDOMEN: Soft, no significant tenderness appreciated, normoactive bowel sounds. No guarding, no rebound. No rigidity noted . No masses appreciated. EXTREMITIES: Pedal pulses are 1-2+, no calf tenderness noted. No clubbing or cyanosis.trace to 1+ pedal edema noted NEUROLOGICAL: Focused neurological exam showed no significant neurologic deficit. Normal speech, no focal weakness appreciated. PSYCH: Normal mood, normal affect. Judgment and insight within normal limits. SKIN: No significant ecchymosis, rash, ulcerations or signs of pruritus noted. MUSCULOSKELETAL EXAM: No significant joint swelling noted. Results Laboratory Results: 08/18/16 08:40 08/18/16 08:40 08/18/16 08/18/16 08/18/16 08:40 08:40 08:40 WBC 7.7 RBC 5.07 Hgb 14.2 Hct 43.5 MCV 86 MCH 27.9 MCHC 32.6 RDW 14.2 H Plt Count 330 Seg Neutrophils % 75.8 Lymphocytes % 16.2 Monocytes % 4.7 Eosinophils % 2.1 Basophils % 1.2 Absolute Neutrophils 5.9 Absolute Lymphocytes 1.3 Absolute Monocytes 0.4 Absolute Eosinophils 0.2 Absolute Basophils 0.1 Sodium 139.3 Potassium 4.5 Chloride 106 Carbon Dioxide 22 Anion Gap 11 BUN 15 Creatinine 1.02 Est GFR ( Amer) > 60 Est GFR (Non-Af Amer) > 60 Glucose 98 Calcium 10.0 Magnesium 2.1 Total Bilirubin 0.8 AST 35 ALT 65 Alkaline Phosphatase 71 Total Protein 7.6 Albumin 4.3 08/17/16 08/18/16 08/18/16 11:04 08:40 08:40 Creatine Kinase 844 H CK-MB (CK-2) 1.53 Troponin I 0.016 NT-Pro-B Natriuret Pep 341 H Impressions: Chest X-Ray 08/16/16 19:32 IMPRESSION: NO ACUTE RADIOGRAPHIC FINDING IN THE CHEST. Chest/Abdomen CTA 08/16/16 19:32 IMPRESSION: NORMAL CTA OF THE CHEST. NO PULMONARY EMBOLI. Knee X-Ray 08/16/16 21:56 IMPRESSION: NEGATIVE STUDY OF THE LEFT KNEE. NO RADIOGRAPHIC EVIDENCE OF ACUTE INJURY. Assessment & Plan - Diagnosis (1) Chest pain Qualifiers: Chest pain type: unspecified Qualified Code(s): R07.9 - Chest pain, unspecified Is this a current diagnosis for this admission?: Yes (2) Headache Qualifiers: Headache type: unspecified Intractability: not intractable Is this a current diagnosis for this admission?: Yes (3) Hypertensive emergency Is this a current diagnosis for this admission?: Yes (4) Obesity Qualifiers: Obesity severity: unspecified obesity severity Is this a current diagnosis for this admission?: Yes (5) Obstructive sleep apnea Is this a current diagnosis for this admission?: Yes (6) Elevated brain natriuretic peptide (BNP) level Is this a current diagnosis for this admission?: Yes - Notes Notes: Nuclear stress test results reviewed with the patient. 2D echo results reviewed with the patient. 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 Twelve-lead EKG, these were reviewed. Chest x-ray: Results reviewed. Medications: These were reviewed. Antihypertensive regimen would need to be optimized. I offered to do this as an outpatient. Patient will also need a sleep study and this can be scheduled. Labs: These were reviewed. Treatment/care plan: This was reviewed and discussed with involved personnel in the care of this patient and patient. Chest pain: Most likely related to severe hypertension. Patient claims that during his ablation procedure 2 years ago, he had a heart catheterization during which no significant blockages were noted. I have requested the reports to be obtained. These results are still pending. Patient has been advised aggressive risk factor modification and medical management. Headaches: Possibly related to underlying sleep apnea syndrome and also severe hypertension. Hypertensive emergency: Patient was noted to have severe hypertension and possibly headache related to it. Recommend good control of blood pressure. Blood pressure goal is 135/85 or less in this young gentleman. Obesity: Patient has been encouraged in weight loss. Obstructive sleep apnea: Patient currently is not compliant on not on therapy. Patient can follow-up with me in this regard. Elevated BNP level: Chest x-ray negative for CHF findings. Possibly related to severe hypertension causing left ventricular stretch. May consider chlorthalidone for better control of blood pressure. Patient felt to be generally stable. Patient will benefit from close cardiology follow-up. - Time Time with patient: 15-25 minutes - CODE STATUS was discussed, patient remains full code. Surrogate decision-maker unchanged. Multiple medical problems were addressed. More than 50% of the time spent coordinating care, discussing management plans with involved caregivers. Management plans discussed with involved personnels. Medical decision making was of moderate to high complexity , patient's has multiple comorbidities. Medications reviewed and adjusted accordingly: Yes
[2016-08-19] MEDS ORDERED: ENALAPRIL MALEATE 5 MG TABLET PO SCH (10:00)
[2016-08-19] MEDS ORDERED: AMLODIPINE BESYLATE 10 MG TABLET PO SCH (10:00)
== END 2016-08-18 12:30 | disposition home or self-care (01) | DRG 304 ==
LOC: ER 18:59 → EH 22:12 → 4W 08-17 01:18 → OBSVTOIN 08-17 08:00
PROVIDERS: ADMIT Internal Medicine; ATTEND Internal Medicine
DX: I16.1 Hypertensive emergency (principal); I50.31 Acute diastolic (congestive) heart failure; M62.82 Rhabdomyolysis; R07.9 Chest pain, unspecified; G47.33 Obstructive sleep apnea (adult) (pediatric); R51 Headache; K21.9 Gastro-esophageal reflux disease without esophagitis; E66.9 Obesity, unspecified; Z68.30 Body mass index [BMI] 30.0-30.9, adult; I10 Essential (primary) hypertension; E78.5 Hyperlipidemia, unspecified; Z79.899 Other long term (current) drug therapy; Z87.891 Personal history of nicotine dependence; Z88.8 Allergy status to other drugs, medicaments and biological substances
CPT/HCPCS: 36415; 71010; 71275; 78452; 80048; 80053; 80061; 80307; 82550; 82553; 83605; 83690; 83735; 83880; 84484; 85025; 85610; 85730; 93005; 93010; 93017; 93306; 96360; 96361; 99285; A9500; J0280; J0360; J2785; J3490; J7030; Q9969

== ENCOUNTER 2017-01-26 08:21 | Emergency (ER) | payer OTHER ==
--- NOTE | 2017-01-26 08:55 | ER Document Report ---
ED Extremity Problem, Lower - General Mode of Arrival: Ambulatory Information source: Patient TRAVEL OUTSIDE OF THE [place] IN LAST 30 DAYS: No <NICOLE GARZA - Last Filed: 01/26/17 10:41> <PAMELA LONG - Last Filed: 01/26/17 13:20> - General Chief Complaint: Knee Pain Stated Complaint: RIGHT KNEE PAIN Time Seen by Provider: 01/26/17 08:46 Notes: Patient is a 41 year old male that presents to the emergency department today with complaints of right knee pain. Patient states the knee has been hurting since last week. Patient cannot recall any event or trauma to the knee. Patient states it hurt worse initially but this morning there were "knots" around his knee causing him to decide to be evaluated. 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 Lives with: Family Family History: CAD, Hypertension, Other - Congestive heart failure - Past Medical History Cardiac Medical History: Reports: Hx Hypertension Pulmonary Medical History: Reports: Hx Sleep Apnea GI Medical History: Reports: Hx Gastroesophageal Reflux Disease Surgical Hx: Negative - Immunizations Hx Diphtheria, Pertussis, Tetanus Vaccination: No <NICOLE GARZA - Last Filed: 01/26/17 10:41> Review of Systems - Review of Systems Constitutional: No symptoms reported EENT: No symptoms reported Cardiovascular: No symptoms reported Respiratory: No symptoms reported Gastrointestinal: No symptoms reported Genitourinary: No symptoms reported Male Genitourinary: No symptoms reported Musculoskeletal: See HPI, Joint pain - right knee Skin: No symptoms reported Hematologic/Lymphatic: No symptoms reported Neurological/Psychological: No symptoms reported -: Yes All other systems reviewed and negative <NICOLE GARZA - Last Filed: 01/26/17 10:41> Physical Exam <NICOLE GARZA - Last Filed: 01/26/17 10:41> <PAMELA LONG - Last Filed: 01/26/17 13:20> - Vital signs Vitals: BP 166/102 H 01/26/17 11:00 - Notes Notes: Physical Exam: General: Alert, appears well. HEENT: Normocephalic. Atraumatic. PERRLA. Extraocular movements intact. Oropharynx clear. Neck: Supple. Respiratory: No respiratory distress. Abdominal: Normal Inspection. No distension. Extremities: Mild right knee effusion, patient complains of "tightness" when flexing right knee. No patellofemoral arthritis appreciated with performing grind test. Neurological: Normal cognition. AAOx4. Normal speech. Psychological: Normal affect. Normal Mood. Skin: Warm. Dry. Normal color. (NICOLE GARZA) Course - Laboratory Result Diagrams: 01/26/17 09:21 01/26/17 09:21 <NICOLE GARZA - Last Filed: 01/26/17 10:41> - Laboratory Result Diagrams: 01/26/17 09:21 01/26/17 09:21 - Diagnostic Test Radiology reviewed: Image reviewed, Reports reviewed - The right knee shows a moderate suprapatellar effusion. <PAMELA LONG - Last Filed: 01/26/17 13:20> - Vital Signs Vital signs: Temp Pulse Resp BP Pulse Ox 166/102 H 01/26/17 11:00 - Laboratory Laboratory results interpreted by me: 01/26/17 01/26/17 09:21 09:21 RDW 14.3 H Sodium 146.2 H AST 16 L Discharge <NICOLE GARZA - Last Filed: 01/26/17 10:41> <PAMELA LONG - Last Filed: 01/26/17 13:20> - Discharge Clinical Impression: Suprapatellar joint effusion Knee joint effusion Qualifiers: Laterality: right Qualified Code(s): M25.461 - Effusion, right knee High blood pressure Qualifiers: Hypertension type: essential hypertension Qualified Code(s): I10 - Essential ( primary) hypertension Condition: Stable Disposition: HOME, SELF-CARE Additional Instructions: Your x-rays and exam show an effusion in the upper part of your knee joint. You should use the knee immobilizer to stabilize the knee. Limit walking. Elevate the leg above your heart as much as possible. Take Aleve, 1 tablet twice daily for anti-inflammatory effect. Drink plenty of fluids to protect your kidneys. Check your blood pressure in the morning before you take your blood pressure medication, if it is elevated, contact your doctor to let him know what your blood pressure readings are. Follow-up with your doctor or [facility] for surgery next week if not improving. RETURN TO THE EMERGENCY ROOM IF ANY NEW OR WORSENING SYMPTOMS. Forms: Return to Work Referrals: LEN SORENSON MD [Primary Care Provider] - Follow up in 3-5 days [facility] [Provider Group] - Follow up as needed Scribe Attestation: 01/26/17 08:58 I personally performed the services described in the documentation, reviewed and edited the documentation which was dictated to the scribe in my presence, and it accurately records my words and actions. (PAMELA LONG) Scribe Documentation - Scribe Written by Suad:: Suad Espana, 01/26/2017 1045 acting as scribe for :: Nida <NICOLE GARZA - Last Filed: 01/26/17 10:41>
--- NOTE | 2017-01-26 09:19 | RADIOLOGY REPORT (SQ) ---
EXAM DESCRIPTION: KNEE RIGHT 4 VIEWS COMPLETED DATE/TIME: 01/26/2017 9:10 am REASON FOR STUDY: swelling COMPARISON: None. NUMBER OF VIEWS: Four views. TECHNIQUE: AP, lateral, and both oblique radiographic images acquired of the right knee. LIMITATIONS: None. FINDINGS: MINERALIZATION: Normal. BONES: No acute fracture or dislocation. No worrisome bone lesions. JOINT: Moderate suprapatellar effusion. SOFT TISSUES: No soft tissue swelling. No radio-opaque foreign body. OTHER: No other significant finding. IMPRESSION: Moderate suprapatellar joint effusion. No acute fracture or malalignment TECHNICAL DOCUMENTATION: JOB ID: [id number] [employer]- All Rights Reserved
[2017-01-26 09:40] LABS: ABSOLUTE BASOPHILS # (AUTO) 0.1 10^3/uL (0.0-0.2); ABSOLUTE EOSINOPHILS # (AUTO) 0.2 10^3/uL (0.0-0.6); ABSOLUTE LYMPHOCYTES (AUTO) 1.9 10^3/uL (0.5-4.7); ABSOLUTE MONOCYTES (AUTO) 0.3 10^3/uL (0.1-1.4); ABSOLUTE NEUT (AUTO) 3.2 10^3/uL (1.7-8.2); HEMATOCRIT 47.2 % (37.9-51.0); HEMOGLOBIN 16.4 g/dL (13.5-17.0); LYMPHOCYTES % (AUTO) 33.2 % (13-45); MEAN CORPUSCULAR HEMOGLOBIN 29.5 pg (27.0-33.4); MEAN CORPUSCULAR HGB CONC 34.6 g/dL (32.0-36.0); MEAN CORPUSCULAR VOLUME 85 fl (80-97); MONOCYTES % (AUTO) 5.2 % (3-13); RED BLOOD COUNT 5.54 10^6/uL (4.35-5.55); RED CELL DISTRIBUTION WIDTH 14.3 % (11.5-14.0); SEGMENTED NEUTROPHILS % (AUTO) 56.6 % (42-78); WHITE BLOOD COUNT 5.6 10^3/uL (4.0-10.5)
[2017-01-26 10:04] LABS: ALANINE AMINOTRANSFERASE 27 U/L (21-72); ALBUMIN 4.7 g/dL (3.5-5.0); ALKALINE PHOSPHATASE 74 U/L (38-126); ANION GAP 14 (5-19); ASPARTATE AMINO TRANSFERASE 16 U/L (17-59); BILIRUBIN,DIRECT 0.3 mg/dL (0.0-0.4); BILIRUBIN,TOTAL 0.9 mg/dL (0.2-1.3); BLOOD UREA NITROGEN 14 mg/dL (7-20); CALCIUM 9.9 mg/dL (8.4-10.2); CARBON DIOXIDE 27 mmol/L (22-30); CHLORIDE 105 mmol/L (98-107); CREATININE RESULT 1.12 mg/dL (0.52-1.25); GLUCOSE 91 mg/dL (75-110); SODIUM 146.2 mmol/L (137-145); TOTAL PROTEIN 7.8 g/dL (6.3-8.2); URIC ACID 5.5 mg/dL (3.5-8.5)
[2017-01-26 10:26] LABS: ERYTHROCYTE SEDIMENTATION RATE 9 mm/hr (0-15)
[2017-01-26 13:45] VITALS: BP 174/98
== END 2017-01-26 13:44 | disposition home or self-care (01) ==
LOC: ER 08:21
DX: M25.461 Effusion, right knee (principal); I10 Essential (primary) hypertension; M25.561 Pain in right knee; Z79.899 Other long term (current) drug therapy
CPT/HCPCS: 99283; 36415; 84550; 85025; 85652; 80053; 73564; L1830

== ENCOUNTER 2017-06-21 11:16 | Observation (INO) | payer OTHER ==
[2017-06-21] MEDS ORDERED: HYDRALAZINE HCL INJ/PF 20 MG/1 ML SDV IV ONE ×2 (11:36→12:50)
--- NOTE | 2017-06-21 12:14 | RADIOLOGY REPORT (SQ) ---
EXAM DESCRIPTION: CT HEAD WITHOUT COMPLETED DATE/TIME: 06/21/2017 12:03 pm REASON FOR STUDY: cp, htn, dizziness blood pressure 220/130. COMPARISON: None. TECHNIQUE: Axial images acquired through the brain without intravenous contrast. Images reviewed wi th bone, brain and subdural windows. Additional sagittal and coronal reconstructions were generated. Images stored on PACS. All CT scanners at this facility use dose modulation, iterative reconstruction, and/or weight based d osing when appropriate to reduce radiation dose to as low as reasonably achievable (ALARA). [facility]: Dose Right [facility]: CareDose [facility]: Dose Right [facility]: Teradose 4D [facility]: WebTuner RADIATION DOSE: 53.21 mGy. LIMITATIONS: None. FINDINGS: VENTRICLES: Normal size and contour. CEREBRUM: No masses. No hemorrhage. No midline shift. No evidence for acute infarction. There is s potty decreased density in the bifrontal and biparietal deep and subcortical white matter. This is w orrisome for small vessel ischemic change. Demyelinating disease could mimic this appearance. CEREBELLUM: No masses. No hemorrhage. No alteration of density. No evidence for acute infarction. EXTRAAXIAL SPACES: No fluid collections. No masses. ORBITS AND GLOBE: No intra- or extraconal masses. Normal contour of globe without masses. CALVARIUM: No fracture. PARANASAL SINUSES: Right maxillary sinus mucus or serous retention cyst. SOFT TISSUES: No mass or hematoma. OTHER: Results discussed with Branden MAGALLANES. IMPRESSION: No CT evidence of acute changes. Spotty white matter small vessel ischemic change in th e deep periventricular white matter. EVIDENCE OF ACUTE STROKE: NO. COMMENT: Quality ID # [id number]: Final reports with documentation of one or more dose reduction techniques (e.g., Automated exposure control, adjustment of the mA and/or kV according to patient size, use of iterative reconstruction technique) TECHNICAL DOCUMENTATION: JOB ID: [id number] [employer]- All Rights Reserved Reading location - IP/workstation name: [facility]
--- NOTE | 2017-06-21 12:16 | RADIOLOGY REPORT (SQ) ---
EXAM DESCRIPTION: CHEST SINGLE VIEW COMPLETED DATE/TIME: 06/21/2017 12:04 pm REASON FOR STUDY: cp, htn, dizziness COMPARISON: Chest films 06/09/2014, 11/09/2008 CT chest 08/24/2016 EXAM PARAMETERS: NUMBER OF VIEWS: One view. TECHNIQUE: Single frontal radiographic view of the chest acquired. RADIATION DOSE: NA LIMITATIONS: EKG leads over the chest. FINDINGS: LUNGS AND PLEURA: No opacities, masses or pneumothorax. No pleural effusion. MEDIASTINUM AND HILAR STRUCTURES: No masses. Contour normal. HEART AND VASCULAR STRUCTURES: Heart normal in size. Normal vasculature. BONES: No acute findings. HARDWARE: None in the chest. OTHER: No other significant finding. IMPRESSION: NO ACUTE RADIOGRAPHIC FINDING IN THE CHEST. TECHNICAL DOCUMENTATION: JOB ID: [id number] [employer]- All Rights Reserved Reading location - IP/workstation name: [email or web address]
[2017-06-21 12:24] LABS: ABSOLUTE BASOPHILS # (AUTO) 0.1 10^3/uL (0.0-0.2); ABSOLUTE EOSINOPHILS # (AUTO) 0.1 10^3/uL (0.0-0.6); ABSOLUTE MONOCYTES (AUTO) 0.4 10^3/uL (0.1-1.4); ABSOLUTE NEUT (AUTO) 4.4 10^3/uL (1.7-8.2); BASOPHILS % (AUTO) 1.4 % (0-2); EOSINOPHILS % (AUTO) 1.6 % (0-6); HEMATOCRIT 44.1 % (37.9-51.0); LYMPHOCYTES % (AUTO) 28.7 % (13-45); MEAN CORPUSCULAR HEMOGLOBIN 28.9 pg (27.0-33.4); MEAN CORPUSCULAR HGB CONC 33.9 g/dL (32.0-36.0); MEAN CORPUSCULAR VOLUME 85 fl (80-97); PLATELET COUNT 292 10^3/uL (150-450); RED BLOOD COUNT 5.18 10^6/uL (4.35-5.55); RED CELL DISTRIBUTION WIDTH 14.1 % (11.5-14.0); SEGMENTED NEUTROPHILS % (AUTO) 63.3 % (42-78); TOTAL CELLS COUNTED % (AUTO) 100 %
[2017-06-21 12:40] LABS: ALANINE AMINOTRANSFERASE 22 U/L (21-72); ALBUMIN 4.5 g/dL (3.5-5.0); ALKALINE PHOSPHATASE 67 U/L (38-126); ANION GAP 13 (5-19); ASPARTATE AMINO TRANSFERASE 19 U/L (17-59); BILIRUBIN,DIRECT 0.2 mg/dL (0.0-0.4); BILIRUBIN,TOTAL 0.8 mg/dL (0.2-1.3); BLOOD UREA NITROGEN 15 mg/dL (7-20); CALCIUM 9.9 mg/dL (8.4-10.2); CARBON DIOXIDE 27 mmol/L (22-30); CHLORIDE 105 mmol/L (98-107); CREATINE KINASE 232 U/L (55-170); GLUCOSE 95 mg/dL (75-110); POTASSIUM 3.6 mmol/L (3.6-5.0); SODIUM 144.5 mmol/L (137-145); TOTAL PROTEIN 7.5 g/dL (6.3-8.2)
[2017-06-21 12:52] LABS: CREATINE KINASE MB 1.19 ng/mL (<4.55); TROPONIN I 0.029 ng/mL
--- NOTE | 2017-06-21 12:52 | ER Document Report ---
ED Dizziness/Weakness - General Chief Complaint: Dizziness Stated Complaint: DIZZY Time Seen by Provider: 06/21/17 11:22 Mode of Arrival: Ambulatory Information source: Patient TRAVEL OUTSIDE OF THE [place] IN LAST 30 DAYS: No - HPI Patient complains to provider of: Dizziness Notes: Patient is here with complaints of dizziness, elevated blood pressure, chest pain. Patient has a long history of hypertension. States that these had a great deal of trouble getting his blood pressure under control. She is currently they have him on blood pressure medication that he cannot afford so he has not been taking it. While at work today he became dizzy feeling like he was going to pass out and had left-sided chest pain with diaphoresis and pain going down his left arm. He denies any chest pain or dizziness currently. He denies any shortness of breath. He denies any fever. No abdominal pain. No nausea, vomiting, diarrhea. No rash. No blurred or loss vision. No other complaints at this time. - Related Data Allergies/Adverse Reactions: ibuprofen [Ibuprofen] Allergy (Verified 01/26/17 08:22) Past Medical History - Social History Smoking Status: Never Smoker Chew tobacco use (# tins/day): No Frequency of alcohol use: Occasional Drug Abuse: None Family History: CAD, Hypertension, Other - Congestive heart failure Patient has suicidal ideation: No Patient has homicidal ideation: No - Past Medical History Cardiac Medical History: Reports: Hx Hypertension Pulmonary Medical History: Reports: Hx Sleep Apnea Renal/ Medical History: Denies: Hx Peritoneal Dialysis GI Medical History: Reports: Hx Gastroesophageal Reflux Disease Past Surgical History: Reports: Hx Cardiac Surgery - SVT ablation - Immunizations Hx Diphtheria, Pertussis, Tetanus Vaccination: No Review of Systems - Review of Systems -: Yes All other systems reviewed and negative Physical Exam - Vital signs Vitals: Pulse Ox 96 06/21/17 11:32 - Notes Notes: GENERAL: alert, cooperative, nontoxic, no distress. HEAD: normocephalic, atraumatic EYES: conjunctiva pink without discharge, no external redness or swelling. Pupils are equal, round, reactive to light. EARS: no external swelling, no external redness NOSE: atraumatic, no external swelling MOUTH/THROAT: mucous membranes moist and pink, posterior pharynx without erythema, swelling, exudate. No trismus or drooling. NECK: soft, supple, full range of motion, no meningismus. CHEST: no distress, lungs clear and equal throughout. No wheezing, rales, rhonchi. CARDIAC: regular rate and rhythm, no murmur, normal capillary refill, normal pulses. No peripheral edema noted. BACK: full range of motion, no CVA tenderness. EXTREMITIES: full range of motion of all extremities. No redness, no swelling. NEURO: alert and oriented x 3, cranial nerves II through XII are grossly intact. Upper and lower extremities are equal throughout. Normal sensation. No focal deficits, full range of motion of all extremities. normal finger to nose. NIH stroke score of 0. PYSCH: appropriate mood, affect. Patient is cooperative. SKIN: pink, warm, dry, no rash. Course - Re-evaluation Re-evalutation: 06/21/17 15:29 Patient is here nontoxic appearing. He arrives with complaints of chest pain feeling like he was going to pass out and extremely high blood pressure. The patient also complains of a headache. EKG shows no acute findings. The patient has a history of hypertension but states that he has not been able to afford the medication that his doctor put him on and is no longer seeing a primary care doctor because he cannot afford to go see the doctor. He denies any chest pain currently. He denies any numbness, tingling, weakness. He has a nonfocal neurological exam at this time. States that his chest pain has resolved. Lab work is unremarkable. Chest x-ray shows no acute abnormalities. CT of the brain shows micro-vascular ischemic changes with no acute findings. Patient was given 2 doses of hydralazine blood pressure has come down to 170/ 100. He was 240 over approximately 130 when he arrived. Patient will be admitted to the hospital for further evaluation and at this discussed the admission with the patient, he is agreeable. I have discussed the case with the admitting physician. - Vital Signs Vital signs: Temp Pulse Resp BP Pulse Ox 98.4 F 98 18 170/100 H 98 06/21/17 11:35 06/21/17 15:00 06/21/17 15:01 06/21/17 15:00 06/21/17 15:00 - Laboratory Result Diagrams: 06/21/17 12:11 06/21/17 12:11 Laboratory results interpreted by me: 06/21/17 06/21/17 12:11 12:11 RDW 14.1 H Creatine Kinase 232 H - Diagnostic Test Radiology reviewed: Image reviewed, Reports reviewed - Chest x-ray negative. CT of the head shows chronic small vessel ischemic changes with no acute findings. - EKG Interpretation by Me EKG shows normal: Sinus rhythm Rate: Normal When compared to previous EKG there are: No significant change Additional EKG results interpreted by mt: 06/21/17 12:52 Right bundle branch block, left ventricular hypertrophy, no acute ischemic changes. Discharge - Discharge Clinical Impression: Hypertensive emergency, no CHF Chest pain Qualifiers: Chest pain type: unspecified Qualified Code(s): R07.9 - Chest pain, unspecified Condition: Serious Disposition: ADMITTED INPATIENT Admitting Provider: [facility] - [facility] Unit Admitted: Telemetry
--- NOTE | 2017-06-21 13:02 | EKG REPORT ---
SEVERITY:- ABNORMAL ECG - SINUS RHYTHM PROBABLE LEFT ATRIAL ABNORMALITY RIGHT BUNDLE BRANCH BLOCK AND LAFB LEFT VENTRICULAR HYPERTROPHY : Confirmed by: Krunal Martinez MD 21-Jun-2017 13:02:29
[2017-06-21] MEDS ORDERED: REGADENOSON INJ 0.4 MG/5 ML DISP.SYRIN IV ONE (14:55)
[2017-06-21] MEDS ORDERED: AMINOPHYLLINE INJ/PF 250 MG/10 ML SDV IV ONE (14:55)
[2017-06-21] MEDS ORDERED: ACETAMINOPHEN 325 MG TABLET PO ONE (15:18)
[2017-06-21] MEDS ORDERED: ZOLPIDEM TARTRATE 5 MG TABLET PO PRN (15:30)
[2017-06-21] MEDS ORDERED: ONDANSETRON HCL INJ/PF 4 MG/2 ML SDV IV PRN (15:30)
[2017-06-21] MEDS ORDERED: ACETAMINOPHEN 325 MG TABLET PO PRN (15:30)
[2017-06-21] MEDS ORDERED: OXYCODONE-ACETAMINOPHEN 5-325 MG TABLET PO PRN (15:30)
[2017-06-21] MEDS ORDERED: LABETALOL HCL INJ 20 MG/4 ML DISP.SYRIN IV PRN (16:15)
--- NOTE | 2017-06-21 16:23 | PDOC H&P ---
History of Present Illness Admission Date/PCP: 06/21/17 15:43 Patient complains of: Dizziness and chest pain in the middle of the chest prior to attending ER History of Present Illness: KHUSHI CARTWRIGHT is a 42 year old maleArrived to ED and complains of experiencing chest pain in the middle of his chest, dizziness, sweatiness and blurred vision while at work. Patient states that he works as a [employer]. He admits history of high blood pressure but has not been able to take medicines due to the cost. Patient states that he has been placed on lisinopril but these medication was doing nothing for his blood pressure. Patient relates that he had experienced similar episodes recently however subsided by resting. He is because made him come to emergency room. States that when EMS arrived his blood pressure was obtained and it was 240/160. Chest pain began to improve with the medication given by EMS. When patient arrived to emergency room his blood pressure was 211/128 and he was immediately treated with hydralazine IV. When the hospitalist service was consulted blood pressure was 170/112.We are prompted to admit patient for further management Past Medical History Cardiac Medical History: Reports: Hypertension Pulmonary Medical History: Reports: Sleep Apnea EENT Medical History: Reports: None Neurological Medical History: Reports: None Endocrine Medical History: Reports: None Renal/ Medical History: Reports: None Malignancy Medical History: Reports: None GI Medical History: Reports: Gastroesophageal Reflux Disease Musculoskeltal Medical History: Reports: None Skin Medical History: Reports: None Psychiatric Medical History: Reports: None Infectious Medical History: Reports: None Past Surgical History Past Surgical History: Reports: None Social History Information Source: Patient Smoking Status: Never Smoker Frequency of Alcohol Use: Occasional Hx Recreational Drug Use: No Drugs: None Hx Prescription Drug Abuse: No - Advance Directive Resuscitation Status: Full Code Family History Family History: CAD, DM, Hypertension, Other - Congestive heart failure Parental Family History Reviewed: Yes Children Family History Reviewed: Yes Sibling(s) Family History Reviewed.: Yes Medication/Allergy Home Medications: Nebivolol HCl [Bystolic 5 mg Tablet] 5 mg PO DAILY 01/26/17 Nisoldipine [Nisoldipine] 20 mg PO DAILY 01/26/17 Nisoldipine [Sular] 20 mg PO DAILY 01/26/17 Allergies/Adverse Reactions: ibuprofen [Ibuprofen] Allergy (Verified 11/30/17 08:22) Review of Systems Constitutional: PRESENT: fatigue. ABSENT: headache(s), weight gain Eyes: PRESENT: visual disturbances Ears: ABSENT: hearing changes Nose, Mouth, and Throat: ABSENT: mouth pain, sore throat Cardiovascular: PRESENT: chest pain. ABSENT: edema, palpitations Respiratory: ABSENT: cough Gastrointestinal: ABSENT: abdominal pain, nausea, vomiting Genitourinary: ABSENT: dysuria, hematuria Musculoskeletal: ABSENT: joint swelling Integumentary: PRESENT: diaphoresis Neurological: PRESENT: dizziness. ABSENT: focal weakness, weakness Psychiatric: ABSENT: depression Endocrine: ABSENT: polyphagia, polyuria Physical Exam Vital Signs: Temp Pulse Resp BP Pulse Ox 98.4 F 98 18 170/100 H 98 06/21/17 11:35 06/21/17 15:00 06/21/17 15:01 06/21/17 15:00 06/21/17 15:00 General appearance: PRESENT: no acute distress, cooperative, well-developed, well-nourished Head exam: PRESENT: atraumatic, normocephalic Eye exam: PRESENT: conjunctival injection, EOMI, PERRLA. ABSENT: nystagmus Ear exam: PRESENT: normal external ear exam Mouth exam: PRESENT: moist Neck exam: PRESENT: full ROM. ABSENT: JVD, lymphadenopathy, tenderness, thyromegaly Respiratory exam: PRESENT: clear to auscultation juan Cardiovascular exam: PRESENT: RRR. ABSENT: diastolic murmur, systolic murmur Vascular exam: PRESENT: normal capillary refill GI/Abdominal exam: PRESENT: normal bowel sounds, soft. ABSENT: tenderness Extremities exam: PRESENT: full ROM. ABSENT: joint swelling, pedal edema, tenderness Musculoskeletal exam: PRESENT: ambulatory Neurological exam: PRESENT: alert, altered, awake, oriented to person, oriented to place, oriented to time, oriented to situation, CN II-XII grossly intact Psychiatric exam: PRESENT: appropriate affect, normal mood Skin exam: PRESENT: normal color Results Impressions: Chest X-Ray 06/21/17 11:32 IMPRESSION: NO ACUTE RADIOGRAPHIC FINDING IN THE CHEST. Head CT 06/21/17 11:32 IMPRESSION: No CT evidence of acute changes. Spotty white matter small vessel ischemic change in the deep periventricular white matter. EVIDENCE OF ACUTE STROKE: NO. Assessment & Plan - Diagnosis (1) Hypertensive emergency Is this a current diagnosis for this admission?: Yes Plan: Patient will be placed on Norvasc, hydralazine oral and will order labetalol for rescue. (2) Chest pain Qualifiers: Chest pain type: unspecified Qualified Code(s): R07.9 - Chest pain, unspecified Is this a current diagnosis for this admission?: Yes Plan: May relate to elevated blood pressure. Will trend troponin. If negative to order nuclear stress test. Patient will be placed on enteric-coated baby aspirin, Lipitor and nitroglycerin sublingual as needed (3) Obstructive sleep apnea Is this a current diagnosis for this admission?: Yes Plan: May also be contributing to presentation. - Time Time Spent: 30 to 50 Minutes Medications reviewed and adjusted accordingly: Yes Anticipated discharge: Home Within: within 48 hours - Inpatient Certification Based on my medical assessment, after consideration of the patient's comorbidities, presenting symptoms, or acuity I expect that the services needed warrant INPATIENT care.: Yes I certify that my determination is in accordance with my understanding of Medicare's requirements for reasonable and necessary INPATIENT services [42 CFR 412.3e].: Yes Medical Necessity: Need Close Monitoring Due to Risk of Patient Decompensation, Need For Continuous Telemetry Monitoring
[2017-06-21] MEDS: HYDRALAZINE HCL 50 MG TABLET PO SCH (17:06)
[2017-06-21 17:11] LABS: URINE AMPHETAMINES SCREEN NEGATIVE; URINE BARBITURATES SCREEN NEGATIVE; URINE BENZODIAZEPINES SCREEN NEGATIVE; URINE COCAINE SCREEN NEGATIVE; URINE MARIJUANA (THC) SCREEN NEGATIVE; URINE METHADONE SCREEN NEGATIVE; URINE PHENCYCLIDINE SCREEN NEGATIVE
[2017-06-21] MEDS ORDERED: AMLODIPINE BESYLATE 10 MG TABLET PO SCH (18:00)
[2017-06-21] MEDS ORDERED: ATORVASTATIN CALCIUM 40 MG TABLET PO SCH (22:00)
[2017-06-21] MEDS: HEPARIN SOD (PORCINE) 5,000 UNIT/ML 1 ML SYRINGE SUBCUT SCH (22:12)
[2017-06-22] MEDS: HYDRALAZINE HCL 50 MG TABLET PO SCH ×2 (01:27→10:43)
[2017-06-22] MEDS: HEPARIN SOD (PORCINE) 5,000 UNIT/ML 1 ML SYRINGE SUBCUT SCH (05:19)
[2017-06-22 06:51] LABS: ABSOLUTE BASOPHILS # (AUTO) 0.1 10^3/uL (0.0-0.2); ABSOLUTE EOSINOPHILS # (AUTO) 0.1 10^3/uL (0.0-0.6); ABSOLUTE MONOCYTES (AUTO) 0.5 10^3/uL (0.1-1.4); ABSOLUTE NEUT (AUTO) 4.7 10^3/uL (1.7-8.2); EOSINOPHILS % (AUTO) 1.4 % (0-6); HEMATOCRIT 44.1 % (37.9-51.0); HEMOGLOBIN 14.9 g/dL (13.5-17.0); LYMPHOCYTES % (AUTO) 27.9 % (13-45); MEAN CORPUSCULAR HEMOGLOBIN 28.8 pg (27.0-33.4); MEAN CORPUSCULAR HGB CONC 33.9 g/dL (32.0-36.0); MEAN CORPUSCULAR VOLUME 85 fl (80-97); MONOCYTES % (AUTO) 6.4 % (3-13); PLATELET COUNT 299 10^3/uL (150-450); RED BLOOD COUNT 5.18 10^6/uL (4.35-5.55); SEGMENTED NEUTROPHILS % (AUTO) 63.3 % (42-78); TOTAL CELLS COUNTED % (AUTO) 100 %; WHITE BLOOD COUNT 7.3 10^3/uL (4.0-10.5)
[2017-06-22 07:04] LABS: ANION GAP 11 (5-19); BLOOD UREA NITROGEN 17 mg/dL (7-20); CALCIUM 9.5 mg/dL (8.4-10.2); CARBON DIOXIDE 28 mmol/L (22-30); CHLORIDE 105 mmol/L (98-107); GLUCOSE 97 mg/dL (75-110); POTASSIUM 3.7 mmol/L (3.6-5.0); SODIUM 144.3 mmol/L (137-145)
[2017-06-22] MEDS ORDERED: ASPIRIN 81 MG TABLET, ENT COATED PO SCH (10:00)
[2017-06-22 12:21] VITALS: BP 160/88
--- NOTE | 2017-06-22 12:39 | DRAGON STRESS TEST REPORT ---
INTRAVENOUS LEXISCAN CARDIOLITE STRESS TEST USING SINGLE PHOTON EMMISION COMPUTERIZED TOMOGRAPHIC. DATE OF PROCEDURE: June 22, 2017, INDICATION : Chest pain CARDIAC RISK FACTORS: Hypertension, dyslipidemia, family history of CAD RESTING EKG: Sinus rhythm with right bundle branch block pattern STRESS EKG: No significant ST segment changes noted with LexiScan bolus REASON FOR TERMINATION: Protocol. PROCEDURE REPORT: Baseline heart rate 81 beats per minute with blood pressure of 169/88. Patient had no significant complaints. Patient was bolused with Lexiscan 0.4 mg intravenously followed by saline bolus. Heart rate at 2 minutes post bolus 108 with a blood pressure of 165/57. 3 minutes post bolus heart rate 92 with blood pressure of 191/102. No significant EKG changes were noted. Patient had no significant complaints during the procedure or postprocedure. Patient injected with Aminophyllin 75 mg at 3 minutes or later after Lexiscan bolus. CONCLUSIONS: Normal EKG and hemodynamic response to IV LexiScan. NUCLEAR DATA: At rest the patient was given 14.41 millicuries of technetium 99 sestamibi injected intravenously. As per protocol rest gated SPECT images were obtained. On day of stress test, the patient was given intravenous LexiScan at a dose of 0.4 mg in 5 mL intravenously, followed by flush with normal saline. Subsequently the stress dose of 42.2 millicuries of technetium 99 sestamibi was injected intravenously. As per protocol stress gated images were obtained. NUCLEAR INTERPRETATION: Both raw and processed data were used for interpretation. Visual, qualitative, computer-generated quantitative data was used. There was good myocardial uptake of technetium compound. Motion artifact and soft tissue attenuations were noted. Increased visceral uptake was noted. No definitive areas of transient perfusion defect noted, No definitive areas of fixed perfusion defect or scars noted. EKG gated imaging showed LV EF at 38 %, rest and stress gated EF similar visually. T. I D. ratio was 1.01. Lung heart ratio noted to be within normal limits 0.28. No significant extracardiac and abnormal radiotracer activities were noted. RV free wall uptake was noted to be WNL. IMPRESSION: Also refer to comments under nuclear interpretation. Also test results needs to be interpreted in the context of pretest probability. 1. No definitive areas of transient perfusion defect noted. 2. There is no definitive scintigraphic evidence of myocardial infarction/scar. 3. EKG gated imaging shows left ventricular ejection fraction of approx. 38 %. 4. Clinical correlation requested as occasionally single vessel disease or balanced ischemia could be missed. In approximately 10% of the cases Lexiscan may not cause adequate vasodilatory stress. RECOMMENDATIONS: Aggressive risk factor modification and medical management. Further evaluation may be needed if continued symptoms or other high risk indicators are noted on clinical evaluation. Close cardiology follow-up is also recommended. Clinical correlation with echocardiogram derived ejection fraction. Inability to exercise by itself can lead to increased cardiovascular event risks. Consider cardiology consultation and or follow-up if clinically indicated. I am available for cardiology evaluation and consultation if requested by the information systems auditor, unless patient already has a rate clerk. NELL
--- NOTE | 2017-06-22 13:04 | XCELERA REPORT ---
[address] [address] Transthoracic Echocardiogram Report Name: KHUSHI CARTWRIGHT Age: 42 yrs Gender: Male : 1975 Patient Status: Inpatient Patient Location: [address] [place] [address] Study Date: 06/22/2017 10:52 AM Height: 71 in Weight: 215 lb BSA: 2.2 m2 Procedure: A complete two-dimensional transthoracic echocardiogram was performed (2D, M-mode, spectral and color flow Doppler). The study was technically adequate with some images being suboptimal in quality. Reason For Study: chest pain Ordering Physician: FRANCK ORR Performed By: Marjorie Coleman Interpretation Summary The left ventricular ejection fraction is normal. There is mild concentric left ventricular hypertrophy. The left ventricle is grossly normal size. Doppler measurements suggest pseudonormalized left ventricular relaxation, which is associated with grade II/IV or mild to moderate diastolic dysfunction Wall motion cannot be accurately commented on, but no definite regional wall motion abnormalities noted. The right ventricle is grossly normal size. The right ventricular systolic function is normal. The right atrium is normal in size The left atrium is mildly dilated. There is a trace to mild amount of mitral regurgitation There is no mitral valve stenosis. There is no aortic valve stenosis No aortic regurgitation is present. There is a trace or physiologic amount of tricuspid regurgitation Tricuspid regurgitation jet envelope not well defined to measure RV systolic pressure accurately. The aortic root is not well visualized but is probably normal size. The inferior vena cava appeared normal and decreased > 50% with respiration (RAP 5-10 mmHg) There is no pericardial effusion. MMode/2D Measurements & Calculations RVDd: 2.5 cm LVIDd: 6.0 cm FS: 30.2 % Ao root diam: 2.9 cm IVSd: 1.0 cm LVIDs: 4.2 cm EDV(Teich): 179.9 ml LVPWd: 1.0 cm ESV(Teich): 78.1 ml Ao root area: 6.8 cm2 EF(Teich): 56.6 % Doppler Measurements & Calculations MV E max susan: MV dec slope: Ao V2 max: LV V1 max P.6 cm/sec 159.3 cm/sec 4.0 mmHg MV A max susan: 307.5 cm/sec2 Ao max PG: LV V1 max: 66.1 cm/sec MV dec time: 10.2 mmHg 100.2 cm/sec MV E/A: 1.2 0.26 sec PA V2 max: TR max susan: 83.3 cm/sec 175.2 cm/sec PA max PG: TR max P.3 mmHg 2.8 mmHg Left Ventricle The left ventricle is grossly normal size. There is mild concentric left ventricular hypertrophy. The left ventricular ejection fraction is normal. Doppler measurements suggest pseudonormalized left ventricular relaxation, which is associated with grade II/IV or mild to moderate diastolic dysfunction. Wall motion cannot be accurately commented on, but no definite regional wall motion abnormalities noted. Right Ventricle The right ventricle is grossly normal size. There is normal right ventricular wall thickness. The right ventricular systolic function is normal. Atria The right atrium is normal in size. The left atrium is mildly dilated. Interarterial septum not well visualized and not well dopplered. Cannot comment on ASD/PFO presence. Mitral Valve The mitral valve is grossly normal. There is no mitral valve stenosis. There is a trace to mild amount of mitral regurgitation. Aortic Valve The aortic valve is grossly normal. There is no aortic valve stenosis. No aortic regurgitation is present. Tricuspid Valve The tricuspid valve is not well visualized, but is grossly normal. There is no tricuspid stenosis. There is a trace or physiologic amount of tricuspid regurgitation. Tricuspid regurgitation jet envelope not well defined to measure RV systolic pressure accurately. Pulmonic Valve The pulmonic valve is not well visualized. Great Vessels The aortic root is not well visualized but is probably normal size. The inferior vena cava appeared normal and decreased > 50% with respiration (RAP 5-10 mmHg). Effusions There is no pericardial effusion. : FRANCK ORR > Pool [place]
--- NOTE | 2017-06-22 15:11 | PDOC DISCHARGE SUMMARY ---
General - Admit/Disc Date/PCP Admission Date/Primary Care Provider: 06/21/17 15:43 Discharge Date: 06/22/17 - Discharge Diagnosis (1) Hypertensive emergency Is this a current diagnosis for this admission?: Yes (2) Diastolic dysfunction with acute on chronic heart failure Is this a current diagnosis for this admission?: Yes (3) Chest pain Is this a current diagnosis for this admission?: Yes (4) Obstructive sleep apnea Is this a current diagnosis for this admission?: No - Additional Information Resuscitation Status: Full Code Discharge Diet: Cardiac Discharge Activity: Activity As Tolerated Prescriptions: Atorvastatin Calcium [Lipitor 40 mg Tablet] 40 mg PO QHS #30 tablet Hydralazine HCl [Apresoline 50 mg Tablet] 100 mg PO Q8A #180 tablet Nifedipine [Nifedipine ER] 90 mg PO DAILY #30 tablet.er Triamterene/Hydrochlorothiazid [Dyazide 37.5-25 Capsule] 1 each PO DAILY #30 capsule Home Medications: Aspirin [Ecotrin 81 mg EC Tablet] 81 mg PO DAILY tabec 06/22/17 Atorvastatin Calcium [Lipitor 40 mg Tablet] 40 mg PO QHS #30 tablet 06/22/17 Hydralazine HCl [Apresoline 50 mg Tablet] 100 mg PO Q8A #180 tablet 06/22/17 Nifedipine [Nifedipine ER] 90 mg PO DAILY #30 tablet.er 06/22/17 Triamterene/Hydrochlorothiazid [Dyazide 37.5-25 Capsule] 1 each PO DAILY #30 capsule 06/22/17 History of Present Illness History of Present Illness: KHUSHI CARTWRIGHT is a 42 year old male arrived to ED via ambulance complaining of experiencing chest pain in the middle of his chest, dizziness, sweatiness, headache and blurred vision while at work. Patient stated that he works as a [employer]. He related history of high blood pressure but had not been able to take medicines due to the cost. Patient stated that he had been placed on lisinopril but this medication was doing nothing for his blood pressure. Patient related that he had experienced similar episodes recently however subsided by resting. He came in because his boss made him come to emergency room. Stated that when EMS arrived his blood pressure was obtained and it was 240/160. Chest pain began to improve with the medication given by EMS. When patient arrived to emergency room his blood pressure was 211/128 and he was immediately treated with hydralazine IV. When the hospitalist service was consulted blood pressure was 170/112.We prompted to admit patient for further management Hospital Course Hospital Course: Patient was admitted to telemetry unit. Troponin trended and negative. There were no cardiac dysrhythmias. Patient underwent nuclear stress test which was negative. EF for nuclear stress test with 30% however echocardiogram demonstrated a grade 2 diastolic dysfunction, concentric hypertrophy and normal EF. Patient has been strongly advised to follow-up with his primary care provider. He alleges that he goes to the [facility] however had not established himself. His nurse educated him about the services the [facility] since she gets those services as well. All his symptoms have subsided and since he had achieved maximum benefit of hospitalization and prompted to discharge. Physical Exam Vital Signs: Temp Pulse Resp BP Pulse Ox 98.4 F 80 20 160/88 H 98 06/22/17 11:49 06/22/17 11:49 06/22/17 11:49 06/22/17 11:49 06/22/17 11:49 Intake & Output 06/21/17 06/22/17 06/23/17 06:59 06:59 06:59 Intake Total 250 Balance 250 Weight 96.4 kg General appearance: PRESENT: no acute distress, cooperative, well-developed, well-nourished Head exam: PRESENT: atraumatic, normocephalic Eye exam: PRESENT: conjunctiva pink, EOMI, PERRLA Ear exam: PRESENT: normal external ear exam Mouth exam: PRESENT: moist, neck supple Neck exam: PRESENT: full ROM. ABSENT: JVD, lymphadenopathy, tenderness Respiratory exam: PRESENT: clear to auscultation juan. ABSENT: tachypnea, unlabored Cardiovascular exam: PRESENT: RRR. ABSENT: diastolic murmur Vascular exam: PRESENT: normal capillary refill GI/Abdominal exam: PRESENT: normal bowel sounds, soft. ABSENT: tenderness Extremities exam: PRESENT: full ROM. ABSENT: pedal edema Musculoskeletal exam: PRESENT: ambulatory Neurological exam: PRESENT: alert, awake, oriented to person, oriented to place , oriented to time, oriented to situation, CN II-XII grossly intact Psychiatric exam: PRESENT: appropriate affect, normal mood Skin exam: PRESENT: normal color Results Laboratory Results: 06/22/17 06:40 06/22/17 06:40 06/22/17 06/22/17 06:40 06:40 WBC 7.3 RBC 5.18 Hgb 14.9 Hct 44.1 MCV 85 MCH 28.8 MCHC 33.9 RDW 14.0 Plt Count 299 Seg Neutrophils % 63.3 Lymphocytes % 27.9 Monocytes % 6.4 Eosinophils % 1.4 Basophils % 1.0 Absolute Neutrophils 4.7 Absolute Lymphocytes 2.0 Absolute Monocytes 0.5 Absolute Eosinophils 0.1 Absolute Basophils 0.1 Sodium 144.3 Potassium 3.7 Chloride 105 Carbon Dioxide 28 Anion Gap 11 BUN 17 Creatinine 1.07 Est GFR ( Amer) > 60 Est GFR (Non-Af Amer) > 60 Glucose 97 Calcium 9.5 Magnesium 2.3 06/21/17 06/22/17 18:14 00:22 Troponin I 0.024 0.021 Impressions: Chest X-Ray 06/21/17 11:32 IMPRESSION: NO ACUTE RADIOGRAPHIC FINDING IN THE CHEST. Head CT 06/21/17 11:32 IMPRESSION: No CT evidence of acute changes. Spotty white matter small vessel ischemic change in the deep periventricular white matter. EVIDENCE OF ACUTE STROKE: NO. Qualifiers - * PATIENT BEING DISCHARGED WITH ANY OF THE FOLLOWING DIAGNOSIS: No, Heart Failure HF Pt being discharged on ACEI for LVEF less than 40%?: No Reason(s) for not prescribing ACEI:: Tx not tolerated HF Pt being discharged on ARBS for LVEF less than 40%?: No Reason(s) for not prescribing ARBS:: Tx not tolerated HF Pt with Afib discharged with Warfarin?: No Reason(s) for not prescribing Warfarin:: Tx not tolerated HF Pt discharged on evidence-based Beta Sharad:: No Reason(s) for not prescribing evidence-based Beta Sharad:: Tx not tolerated Plan Discharge Plan: Patient will be discharged home. [facility] Time Spent: Less than 30 Minutes
== END 2017-06-22 16:45 | disposition home or self-care (01) ==
LOC: ER 11:16 → INTOOBSV 15:43 → EH 15:43 → 5 19:15
PROVIDERS: ADMIT Family Medicine; ATTEND Family Medicine
DX: I11.0 Hypertensive heart disease with heart failure (principal); I50.33 Acute on chronic diastolic (congestive) heart failure; R07.9 Chest pain, unspecified; G47.33 Obstructive sleep apnea (adult) (pediatric); R61 Generalized hyperhidrosis; I45.10 Unspecified right bundle-branch block; Z79.82 Long term (current) use of aspirin; Z79.899 Other long term (current) drug therapy; Z82.49 Family history of ischemic heart disease and other diseases of the circulatory system; Z59.8 Other problems related to housing and economic circumstances; Z91.14 Patient's other noncompliance with medication regimen
CPT/HCPCS: 93005; 96376; 99285; 96374; 36415 ×2; 82553; 82550; 83735; 85025 ×2; 80048; 80053; 84484 ×2; 80307; 83880; 93306; 93017; 71045; 78452; 70450; 93010; G0378 ×3; A9500; J2785; J1644; J0360; J3490; J0280; Q9969

== ENCOUNTER 2018-08-14 11:45 | Emergency (ER) | payer OTHER ==
[2018-08-14] MEDS ORDERED: ONDANSETRON HCL INJ/PF 4 MG/2 ML SDV IV ONE (12:00)
[2018-08-14] MEDS ORDERED: MORPHINE SULFATE 10 MG/ML INJ IV ONE (12:00)
[2018-08-14] MEDS ORDERED: NORMAL SALINE 1000 ML 1,000 ML IV ONE (12:00)
--- NOTE | 2018-08-14 12:02 | ER Document Report ---
ED Medical Screen (RME) - General Chief Complaint: Flank Pain Stated Complaint: FLANK PAIN Time Seen by Provider: 08/14/18 11:57 TRAVEL OUTSIDE OF THE U.S. IN LAST 30 DAYS: No - HPI Notes: 08/14/18 12:00 Patient is a 43-year-old male with a history of hypertension who presents complaining of right flank pain that started today and radiates around to his anterior abdomen with associated nausea and increased urinary frequency. Patient states that he also has left lower back pain that will radiate into his leg over the past couple months, but the flank pain is what brought him here today. Patient states he does notice some discomfort in his abdomen when he eats as well in the right upper quadrant. Denies TOLENTINO, fever, neck pain, URI, CP, SOB, or rash. I have treated and performed a rapid initial assessment of this patient. A comprehensive ED assessment and evaluation of the patient, analysis of test results and completion of medical decision making process will be conducted by additional ED providers. PHYSICAL EXAMINATION: GENERAL: Well-appearing, well-nourished and in no acute distress. A&Ox4. Answers questions appropriately. LUNGS: Breath sounds clear to auscultation bilaterally and equal. No wheezes rales or rhonchi. HEART: Regular rate and rhythm without murmurs, rubs, gallops. ABDOMEN: Soft, nondistended abdomen. No guarding, no rebound. Normal bowel sounds present. + rt CVA tenderness. + Mild right upper quadrant tenderness (cannot elicit thorough abd exam w/o bed, however). - Related Data Allergies/Adverse Reactions: ibuprofen [Ibuprofen] Allergy (Verified 01/26/17 08:22) Past Medical History - Past Medical History Cardiac Medical History: Reports: Hx Hypertension Pulmonary Medical History: Reports: Hx Sleep Apnea Renal/ Medical History: Denies: Hx Peritoneal Dialysis GI Medical History: Reports: Hx Gastroesophageal Reflux Disease Psychiatric Medical History: Denies: Hx Depression Past Surgical History: Reports: Hx Cardiac Surgery - SVT ablation - Immunizations Hx Diphtheria, Pertussis, Tetanus Vaccination: No History of Influenza Vaccine for 11/2016 - 04/2017 Season: Unknown Physical Exam - Vital signs Vitals: Temp Pulse BP Pulse Ox 98.1 F 92 152/85 H 99 08/14/18 11:50 08/14/18 11:50 08/14/18 11:50 08/14/18 11:50 Course - Vital Signs Vital signs: Temp Pulse Resp BP Pulse Ox 98.1 F 92 152/85 H 99 08/14/18 11:50 08/14/18 11:50 08/14/18 11:50 08/14/18 11:50
[2018-08-14 12:45] LABS: ABSOLUTE BASOPHILS # (AUTO) 0.1 10^3/uL (0.0-0.2); ABSOLUTE EOSINOPHILS # (AUTO) 0.1 10^3/uL (0.0-0.6); ABSOLUTE MONOCYTES (AUTO) 0.5 10^3/uL (0.1-1.4); ABSOLUTE NEUT (AUTO) 3.3 10^3/uL (1.7-8.2); HEMATOCRIT 45.4 % (37.9-51.0); HEMOGLOBIN 15.5 g/dL (13.5-17.0); LYMPHOCYTES % (AUTO) 33.2 % (13-45); MEAN CORPUSCULAR HEMOGLOBIN 28.8 pg (27.0-33.4); MEAN CORPUSCULAR HGB CONC 34.2 g/dL (32.0-36.0); MEAN CORPUSCULAR VOLUME 84 fl (80-97); MONOCYTES % (AUTO) 7.7 % (3-13); PLATELET COUNT 304 10^3/uL (150-450); RED BLOOD COUNT 5.39 10^6/uL (4.35-5.55); SEGMENTED NEUTROPHILS % (AUTO) 56.1 % (42-78); TOTAL CELLS COUNTED % (AUTO) 100 %
[2018-08-14 12:55] LABS: APPEARANCE,URINE CLEAR; BILIRUBIN,URINE NEGATIVE (NEGATIVE); COLOR,URINE YELLOW; GLUCOSE, URINE NEGATIVE (NEGATIVE); KETONES,URINE NEGATIVE (NEGATIVE); LEUKOCYTE ESTERASE,URINE NEGATIVE (NEGATIVE); NITRITE,URINE NEGATIVE (NEGATIVE); PROTEIN,URINE NEGATIVE (NEGATIVE); URINE SPECIFIC GRAVITY 1.015; UROBILINOGEN,URINE NEGATIVE mg/dL (<2.0)
--- NOTE | 2018-08-14 12:57 | RADIOLOGY REPORT (SQ) ---
EXAM DESCRIPTION: CT ABD/PELVIS NO ORAL OR IV COMPLETED DATE/TIME: 08/14/2018 12:35 pm REASON FOR STUDY: Rt flank pain COMPARISON: None. TECHNIQUE: CT scan of the abdomen and pelvis performed without intravenous or oral contrast. Images reviewed with lung, soft tissue, and bone windows. Reconstructed coronal and sagittal MPR images revi ewed. All images stored on PACS. All CT scanners at this facility use dose modulation, iterative reconstruction, and/or weight based d osing when appropriate to reduce radiation dose to as low as reasonably achievable (ALARA). [facility]: Dose Right [facility]: CareDose [facility]: Dose Right [facility]: Teradose 4D [facility]: Smart [employer] RADIATION DOSE: CT Rad equipment meets quality standard of care and radiation dose reduction techniq ues were employed. CTDIvol: 13.5 mGy. DLP: 728 mGy-cm.mGy. LIMITATIONS: None. FINDINGS: LOWER CHEST: No significant findings. No nodules or infiltrates. NON-CONTRASTED LIVER, SPLEEN, ADRENALS: Evaluation limited by lack of IV contrast. No identified sign ificant masses. PANCREAS: No masses. No peripancreatic inflammatory changes. GALLBLADDER: No identified stones by CT criteria. No inflammatory changes to suggest cholecystitis. RIGHT KIDNEY AND URETER: No suspicious masses. Assessment limited by lack of IV contrast. No signif icant calcifications. No hydronephrosis or hydroureter. LEFT KIDNEY AND URETER: No suspicious masses. Assessment limited by lack of IV contrast. No signifi cant calcifications. No hydronephrosis or hydroureter. AORTA AND RETROPERITONEUM: No aneurysm. No retroperitoneal masses or adenopathy. BOWEL AND PERITONEAL CAVITY: No obvious masses or inflammatory changes. No free fluid. APPENDIX: Normal. PELVIS, BLADDER, AND ABDOMINAL WALL:No abnormal masses. No free fluid. Bladder normal. BONES: No significant findings. OTHER: No other significant finding. IMPRESSION: NO SIGNIFICANT OR ACUTE PROCESS IN THE ABDOMEN OR PELVIS. COMMENT: Quality ID # [id number]: Final reports with documentation of one or more dose reduction techniques (e.g., Automated exposure control, adjustment of the mA and/or kV according to patient size, use of iterative reconstruction technique) TECHNICAL DOCUMENTATION: JOB ID: [id number] [employer]- All Rights Reserved Reading location - IP/workstation name: [email or web address]
[2018-08-14 13:05] LABS: ALANINE AMINOTRANSFERASE 26 U/L (21-72); ALBUMIN 5.1 g/dL (3.5-5.0); ALKALINE PHOSPHATASE 65 U/L (38-126); ANION GAP 11 (5-19); ASPARTATE AMINO TRANSFERASE 18 U/L (17-59); BILIRUBIN,DIRECT 0.2 mg/dL (0.0-0.4); BILIRUBIN,TOTAL 0.9 mg/dL (0.2-1.3); BLOOD UREA NITROGEN 16 mg/dL (7-20); CALCIUM 10.4 mg/dL (8.4-10.2); CARBON DIOXIDE 27 mmol/L (22-30); CHLORIDE 103 mmol/L (98-107); GLUCOSE 85 mg/dL (75-110); LIPASE 308.6 U/L (23-300); POTASSIUM 3.8 mmol/L (3.6-5.0); SODIUM 140.7 mmol/L (137-145); TOTAL PROTEIN 8.4 g/dL (6.3-8.2)
[2018-08-14] MEDS ORDERED: HYDROCODONE/ACETAMINOPHEN 5-325 MG (6 TAB/ER DISP) PO PRN (14:16)
[2018-08-14] MEDS ORDERED: ONDANSETRON ODT 4 MG TAB (6 TAB/ER DISP) PO PRN (14:17)
--- NOTE | 2018-08-14 14:17 | ER Document Report ---
ED General - General Chief Complaint: Flank Pain Stated Complaint: FLANK PAIN Time Seen by Provider: 08/14/18 11:57 Mode of Arrival: Ambulatory Information source: Patient TRAVEL OUTSIDE OF THE U.S. IN LAST 30 DAYS: No - HPI Patient complains to provider of: Right flank pain, right groin pain, nausea Onset: Just prior to arrival Onset/Duration: Sudden Quality of pain: Sharp, Stabbing Severity: Moderate Pain Level: 3 Associated symptoms: None, Nausea. 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 Never had this sensation before. Fevers or shaking chills. No diarrhea. - Related Data Allergies/Adverse Reactions: ibuprofen [Ibuprofen] Allergy (Verified 01/26/17 08:22) Past Medical History - General Information source: Patient - Social History Smoking Status: Never Smoker Chew tobacco use (# tins/day): No Frequency of alcohol use: Occasional Drug Abuse: None Family History: CAD, DM, Hypertension, Other - Congestive heart failure Patient has suicidal ideation: No Patient has homicidal ideation: No - Past Medical History Cardiac Medical History: Reports: Hx Hypertension Pulmonary Medical History: Reports: Hx Sleep Apnea Renal/ Medical History: Denies: Hx Peritoneal Dialysis GI Medical History: Reports: Hx Gastroesophageal Reflux Disease Psychiatric Medical History: Denies: Hx Depression Past Surgical History: Reports: Hx Cardiac Surgery - SVT ablation - Immunizations Hx Diphtheria, Pertussis, Tetanus Vaccination: No Review of Systems - Review of Systems Notes: Constitutional: No fevers. No chills. EENT: No eye redness. No eye pain. No ear pain. No sore throat. Cardiovascular: No chest pain. No palpitations. Respiratory: No cough. No shortness of breath. No respiratory distress. Gastrointestinal: Positive for right flank pain, positive for nausea, negative for vomiting and diarrhea Genitourinary: Atraumatic. No lesions. No pain. No discharge. Musculoskeletal: Atraumatic. No swelling. No deformities. Skin: No rash or lesions. Lymphatic: No swollen lymph nodes. Neurologic: No headache. No syncope. Psychiatric: No suicidal or homicidal ideation. Physical Exam - Vital signs Vitals: Temp Pulse BP Pulse Ox 98.1 F 92 152/85 H 99 08/14/18 11:50 08/14/18 11:50 08/14/18 11:50 08/14/18 11:50 - Notes Notes: General: Well-developed, well-nourished. In no acute distress. Non-toxic ap pearing. Cardiac: Well-perfused. Regular rate and rhythm. No murmurs, rubs, or gallops. Pulmonary: No respiratory distress. No cyanosis. Bilateral lung fiels are clear to auscultation. Abdominal: Non-distended. Non-rigid. Bowels sounds are present in all four quadrants. No guarding or rebound. HEENT: Head is atraumatic. Conjunctivae not reddened. No tearing. PERRL. EOMI. Orbits atraumatic. No periorbital swelling or erythema. Oropharynx is without erythema, swelling, or exudates. Neck: Supple. No adenopathy. No meningismus. Dermatologic: Warm with good turgor. No rash. Atraumatic. Chest: Atraumatic. No chest wall tenderness to palpation. Musculoskeletal: Moves all extremities well. No range of motion deficits. no muscular or joint tenderness. No paraspinal muscle tenderness. no midline spinal tenderness or step-off. Genitourinary: Examination deferred Neurologic: No gross neurologic deficits. Psychiatric: Normal mood. Course - Re-evaluation Re-evalutation: 08/14/18 14:15 Patient's labs have returned. No evidence of any kind of infection. No CT evidence of stone. History consistent with stone. Question whether possible passed kidney stone. In any event we will discharge home with pain medicine and nausea medicine - Vital Signs Vital signs: Temp Pulse Resp BP Pulse Ox 98.1 F 92 152/85 H 99 08/14/18 11:50 08/14/18 11:50 08/14/18 11:50 08/14/18 11:50 - Laboratory Result Diagrams: 08/14/18 12:15 08/14/18 12:15 Laboratory results interpreted by me: 08/14/18 12:15 Calcium 10.4 H Total Protein 8.4 H Albumin 5.1 H Lipase 308.6 H Discharge - Discharge Clinical Impression: Acute flank pain, Nausea Hypertension Qualifiers: Hypertension type: unspecified Qualified Code(s): I10 - Essential (primary) hypertension Condition: Good Disposition: HOME, SELF-CARE Instructions: Abdominal Pain ([facility]), Antinausea Medication ([facility]) Additional Instructions: Please use the medications that were given to you in the emergency department. If your symptoms somehow are getting worse or not resolving within the next couple of days, you can always return back to the emergency department for recheck. Also recommend that she get reacquainted with your primary care doctor for your persistently elevated blood pressure. Forms: Elevated Blood Pressure Referrals: primary care doctor, your [Other] - Follow up as needed
--- NOTE | 2018-08-14 14:27 | RADIOLOGY REPORT (SQ) ---
EXAM DESCRIPTION: U/S ABDOMEN LIMITED W/O DOP COMPLETED DATE/TIME: 08/14/2018 2:11 pm REASON FOR STUDY: ruq pain COMPARISON: None. TECHNIQUE: Dynamic and static grayscale images acquired of the abdomen and recorded on PACS. Additio nal selected color Doppler and spectral images recorded. LIMITATIONS: None. FINDINGS: PANCREAS: Obscured by bowel gas. LIVER: No masses. Echotexture normal. LIVER VASCULATURE: Normal directional flow of the main portal vein and hepatic veins. GALLBLADDER: No stones. Normal wall thickness. No pericholecystic fluid. ULTRASOUND-DETECTED CHRISTIANSON'S SIGN: Negative. INTRAHEPATIC DUCTS AND COMMON DUCT: CBD and intrahepatic ducts normal caliber. No filling defects. INFERIOR VENA CAVA: Normal flow. AORTA: No aneurysm. RIGHT KIDNEY: Normal size. Normal echogenicity. No solid or suspicious masses. No hydronephrosis. No calcifications. PERITONEAL AND RIGHT PLEURAL SPACE: No ascites or effusions. OTHER: No other significant findings. IMPRESSION: No ultrasound findings of the right upper quadrant to explain abdominal pain. TECHNICAL DOCUMENTATION: JOB ID: [id number] [employer]- All Rights Reserved Reading location - IP/workstation name: [email or web address]
[2018-08-14 14:37] VITALS: BP 159/92
== END 2018-08-14 14:37 | disposition home or self-care (01) ==
LOC: ER 11:45
DX: R10.9 Unspecified abdominal pain (principal); R11.0 Nausea; I10 Essential (primary) hypertension; Z88.6 Allergy status to analgesic agent
CPT/HCPCS: 99284; 96361; 96374; 96375; 36415; 83690; 85025; 80053; 81001; 76705; 74176; J2270; J2405; J7030

== ENCOUNTER 2019-03-01 10:22 | Emergency (ER) | payer OTHER ==
[2019-03-01] MEDS ORDERED: KETOROLAC TROMETHAMINE INJ/PF 30 MG/1 ML SDV IV ONE (11:26)
[2019-03-01] MEDS ORDERED: ONDANSETRON HCL INJ/PF 4 MG/2 ML SDV IV ONE (11:26)
--- NOTE | 2019-03-01 12:14 | ER Document Report ---
ED Medical Screen (RME) - General Chief Complaint: Flank Pain Stated Complaint: FLANK PAIN Time Seen by Provider: 03/01/19 12:07 Information source: Patient Notes: Patient presents complaining of bilateral flank pain that will occasionally wrap around to both sides of the abdomen for the past week. Patient states that he has had some tingling to the urethra after voiding. Patient denies any penile discharge. Patient did report to the nurse that he had had some palpitations for the past week as well. I have greeted and performed a rapid initial assessment of this patient. A comprehensive ED assessment and evaluation of the patient, analysis of test results and completion of the medical decision making process will be conducted by additional ED providers. TRAVEL OUTSIDE OF THE U.S. IN LAST 30 DAYS: No - Related Data Allergies/Adverse Reactions: ibuprofen [Ibuprofen] Allergy (Verified 03/01/19 11:24) Past Medical History - Social History Chew tobacco use (# tins/day): No Frequency of alcohol use: Rare Drug Abuse: None - Past Medical History Cardiac Medical History: Reports: Hx Hypertension Pulmonary Medical History: Reports: Hx Sleep Apnea Renal/ Medical History: Denies: Hx Peritoneal Dialysis GI Medical History: Reports: Hx Gastroesophageal Reflux Disease Psychiatric Medical History: Denies: Hx Depression Past Surgical History: Reports: Hx Cardiac Surgery - SVT ablation - Immunizations Hx Diphtheria, Pertussis, Tetanus Vaccination: No Physical Exam - Vital signs Vitals: Temp Pulse Resp BP Pulse Ox 98.1 F 98 18 185/91 H 98 03/01/19 11:10 03/01/19 11:10 03/01/19 11:10 03/01/19 11:10 03/01/19 11:10 - Back Back: CVA tenderness - Bilateral Course - Vital Signs Vital signs: Temp Pulse Resp BP Pulse Ox 98.1 F 98 18 185/91 H 98 03/01/19 11:10 03/01/19 11:10 03/01/19 11:10 03/01/19 11:10 03/01/19 11:10
[2019-03-01] MEDS ORDERED: FENTANYL CITRATE INJ/PF 100 MCG/2 ML AMPUL IV ONE (12:16)
[2019-03-01 12:26] LABS: APPEARANCE,URINE SLIGHTLY-CLOUDY; BILIRUBIN,URINE NEGATIVE (NEGATIVE); COLOR,URINE STRAW; GLUCOSE, URINE NEGATIVE (NEGATIVE); KETONES,URINE NEGATIVE (NEGATIVE); LEUKOCYTE ESTERASE,URINE NEGATIVE (NEGATIVE); NITRITE,URINE NEGATIVE (NEGATIVE); PROTEIN,URINE NEGATIVE (NEGATIVE); UROBILINOGEN,URINE NEGATIVE mg/dL (<2.0)
[2019-03-01 12:33] LABS: ABSOLUTE EOSINOPHILS # (AUTO) 0.1 10^3/uL (0.0-0.6); ABSOLUTE LYMPHOCYTES (AUTO) 1.9 10^3/uL (0.5-4.7); ABSOLUTE MONOCYTES (AUTO) 0.4 10^3/uL (0.1-1.4); ABSOLUTE NEUT (AUTO) 3.9 10^3/uL (1.7-8.2); BASOPHILS % (AUTO) 0.7 % (0-2); EOSINOPHILS % (AUTO) 2.2 % (0-6); HEMATOCRIT 45.6 % (37.9-51.0); HEMOGLOBIN 15.7 g/dL (13.5-17.0); MEAN CORPUSCULAR HEMOGLOBIN 29.2 pg (27.0-33.4); MEAN CORPUSCULAR HGB CONC 34.4 g/dL (32.0-36.0); MEAN CORPUSCULAR VOLUME 85 fl (80-97); MONOCYTES % (AUTO) 6.6 % (3-13); PLATELET COUNT 292 10^3/uL (150-450); RED BLOOD COUNT 5.38 10^6/uL (4.35-5.55); RED CELL DISTRIBUTION WIDTH 14.4 % (11.5-14.0); SEGMENTED NEUTROPHILS % (AUTO) 60.5 % (42-78); TOTAL CELLS COUNTED % (AUTO) 100 %; WHITE BLOOD COUNT 6.4 10^3/uL (4.0-10.5)
--- NOTE | 2019-03-01 12:51 | RADIOLOGY REPORT (SQ) ---
EXAM DESCRIPTION: CT ABD/PELVIS NO ORAL OR IV COMPLETED DATE/TIME: 03/01/2019 12:31 pm REASON FOR STUDY: flank pain, abd pain COMPARISON: 08/14/2018 TECHNIQUE: CT scan of the abdomen and pelvis performed without intravenous or oral contrast. Images reviewed with lung, soft tissue, and bone windows. Reconstructed coronal and sagittal MPR images revi ewed. All images stored on PACS. All CT scanners at this facility use dose modulation, iterative reconstruction, and/or weight based d osing when appropriate to reduce radiation dose to as low as reasonably achievable (ALARA). [facility]: Dose Right [facility]: CareDose [facility]: Dose Right [facility]: Teradose 4D [facility]: Smart [employer] RADIATION DOSE: CT Rad equipment meets quality standard of care and radiation dose reduction techniq ues were employed. CTDIvol: 9.4 mGy. DLP: 476 mGy-cm.mGy. LIMITATIONS: None. FINDINGS: LOWER CHEST: No significant findings. No nodules or infiltrates. NON-CONTRASTED LIVER, SPLEEN, ADRENALS: Evaluation limited by lack of IV contrast. No identified sign ificant masses. PANCREAS: No masses. No peripancreatic inflammatory changes. GALLBLADDER: No identified stones by CT criteria. No inflammatory changes to suggest cholecystitis. RIGHT KIDNEY AND URETER: No suspicious masses. Assessment limited by lack of IV contrast. No signif icant calcifications. No hydronephrosis or hydroureter. LEFT KIDNEY AND URETER: No suspicious masses. Assessment limited by lack of IV contrast. Exophytic c yst measuring 1 cm. No significant calcifications. No hydronephrosis or hydroureter. AORTA AND RETROPERITONEUM: No aneurysm. No retroperitoneal masses or adenopathy. BOWEL AND PERITONEAL CAVITY: No obvious masses or inflammatory changes. No free fluid. APPENDIX: Normal. PELVIS, BLADDER, AND ABDOMINAL WALL:No abnormal masses. No free fluid. Bladder normal. BONES: No significant findings. OTHER: No other significant finding. IMPRESSION: No evidence of nephrolithiasis or obstructive uropathy. No other evidence of acute intr a-abdominal/pelvic process. COMMENT: Quality ID # [id number]: Final reports with documentation of one or more dose reduction techniques (e.g., Automated exposure control, adjustment of the mA and/or kV according to patient size, use of iterative reconstruction technique) TECHNICAL DOCUMENTATION: JOB ID: [id number]- All Rights Reserved Reading location - IP/workstation name: [email or web address]
[2019-03-01 12:54] LABS: ALKALINE PHOSPHATASE 67 U/L (38-126); ANION GAP 12 (5-19); ASPARTATE AMINO TRANSFERASE 16 U/L (17-59); BILIRUBIN,DIRECT 0.2 mg/dL (0.0-0.4); BILIRUBIN,TOTAL 0.7 mg/dL (0.2-1.3); BLOOD UREA NITROGEN 15 mg/dL (7-20); CALCIUM 10.3 mg/dL (8.4-10.2); CARBON DIOXIDE 28 mmol/L (22-30); CHLORIDE 102 mmol/L (98-107); GLUCOSE 90 mg/dL (75-110); POTASSIUM 3.7 mmol/L (3.6-5.0); TOTAL PROTEIN 8.5 g/dL (6.3-8.2)
[2019-03-01] MEDS ORDERED: AZITHROMYCIN 250 MG TABLET PO ONE (14:09)
[2019-03-01] MEDS ORDERED: CEFTRIAXONE INJ 250 MG VIAL IV ONE (14:09)
--- NOTE | 2019-03-01 14:15 | ER Document Report ---
ED GI/ - General Chief Complaint: Flank Pain Stated Complaint: FLANK PAIN Time Seen by Provider: 03/01/19 12:07 Primary Care Provider: [facility] [Provider Group] - Follow up as needed DANNI CORDON MD [Primary Care Provider] - Follow up as needed Ronny GALINDO MD [ACTIVE STAFF] - Follow up as needed Information source: Patient Notes: Patient presents complaining of bilateral flank pain for the past 2 weeks. Patient states he has had chills. Patient also complains of a tingling to the urethra after he voids. Patient denies any fever nausea or vomiting. TRAVEL OUTSIDE OF THE [place] IN LAST 30 DAYS: No - HPI Patient complains to provider of: Flank pain Onset: Other - 2 weeks Timing/Duration: Persistent Quality of pain: Achy Pain Level: 5 Location: Left flank, Right flank Associated symptoms: Dysuria - Tingling to urethra after voiding. 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 Family History: CAD, DM, Hypertension, Other - Congestive heart failure Patient has suicidal ideation: No Patient has homicidal ideation: No - Past Medical History Cardiac Medical History: Reports: Hx Hypertension Pulmonary Medical History: Reports: Hx Sleep Apnea Renal/ Medical History: Denies: Hx Peritoneal Dialysis GI Medical History: Reports: Hx Gastroesophageal Reflux Disease Psychiatric Medical History: Denies: Hx Depression Past Surgical History: Reports: Hx Cardiac Surgery - SVT ablation - Immunizations Hx Diphtheria, Pertussis, Tetanus Vaccination: No Review of Systems - Review of Systems Constitutional: No symptoms reported. denies: Fever, Recent illness EENT: No symptoms reported Cardiovascular: No symptoms reported. denies: Chest pain Respiratory: No symptoms reported Gastrointestinal: Abdominal pain. denies: Nausea, Vomiting Genitourinary: Dysuria, Flank pain. denies: Discharge Male Genitourinary: No symptoms reported Musculoskeletal: Back pain Skin: No symptoms reported Hematologic/Lymphatic: No symptoms reported Neurological/Psychological: No symptoms reported Physical Exam - Vital signs Vitals: Temp Pulse Resp BP Pulse Ox 98.1 F 98 18 185/91 H 98 03/01/19 11:10 03/01/19 11:10 03/01/19 11:10 03/01/19 11:10 03/01/19 11:10 - General General appearance: Appears well, Alert In distress: None - HEENT Head: Normocephalic, Atraumatic Eyes: Normal Conjunctiva: Normal Nasal: Normal Mouth/Lips: Normal Mucous membranes: Normal Neck: Normal, Supple. No: Lymphadenopathy - Respiratory Respiratory status: No respiratory distress Chest status: Nontender Breath sounds: Normal. No: Rales, Rhonchi, Stridor, Wheezing Chest palpation: Normal - Cardiovascular Rhythm: Regular Heart sounds: S1 appreciated, S2 appreciated Murmur: No - Abdominal Inspection: Normal Distension: No distension Bowel sounds: Normal Tenderness: Nontender - Back Back: Normal. No: CVA tenderness - Extremities General upper extremity: Normal inspection, Normal strength General lower extremity: Normal inspection, Normal strength - Neurological Neuro grossly intact: Yes Cognition: Normal [place] Coma Scale Eye Opening: Spontaneous Alan Coma Scale Verbal: Oriented Alan Coma Scale Motor: Obeys Commands Alan Coma Scale Total: 15 - Psychological Associated symptoms: Normal affect, Normal mood - Skin Skin Temperature: Warm Skin Moisture: Dry Skin Color: Normal Course - Re-evaluation Re-evalutation: 03/01/19 14:11 Patient's results reviewed. Patient without any acute findings aside from incidental left renal cyst. Patient advised of this finding. Patient states that he has had pain off and on for 2 weeks rather than just 1 week. Patient states that his pain presently is gone but he wanted to be seen for his flank tenderness. CT reviewed, for any obstructive uropathy. Gonorrhea chlamydia test are still pending at this time will treat empirically for possible STD. Discussed with patient concern about possible musculoskeletal cause for his symptoms. Patient does have a follow-up with primary doctor in 1 week. - Vital Signs Vital signs: Temp Pulse Resp BP Pulse Ox 97.9 F 71 16 146/92 H 97 03/01/19 14:32 03/01/19 14:32 03/01/19 14:32 03/01/19 14:32 03/01/19 14:32 - Laboratory Result Diagrams: 03/01/19 12:00 03/01/19 12:00 Laboratory results interpreted by me: 03/01/19 03/01/19 12:00 12:00 RDW 14.4 H Calcium 10.3 H AST 16 L Total Protein 8.5 H 03/01/19 14:12 Labs- Entire Visit 03/01/19 03/01/19 03/01/19 11:55 12:00 12:00 WBC 6.4 RBC 5.38 Hgb 15.7 Hct 45.6 MCV 85 MCH 29.2 MCHC 34.4 RDW 14.4 H Plt Count 292 Lymph % (Auto) 30.0 [place] % (Auto) 6.6 Eos % (Auto) 2.2 Baso % (Auto) 0.7 Absolute Neuts (auto) 3.9 Absolute Lymphs (auto) 1.9 Absolute Monos (auto) 0.4 Absolute Eos (auto) 0.1 Absolute Basos (auto) 0.0 Seg Neutrophils % 60.5 Sodium 142.2 Potassium 3.7 Chloride 102 Carbon Dioxide 28 Anion Gap 12 BUN 15 Creatinine 1.09 Est GFR ( Amer) > 60 Est GFR (MDRD) Non-Af > 60 Glucose 90 Calcium 10.3 H Total Bilirubin 0.7 Direct Bilirubin 0.2 Neonat Total Bilirubin Not Reportable Neonat Direct Bilirubin Not Reportable Neonat Indirect Bili Not Reportable AST 16 L ALT 15 Alkaline Phosphatase 67 Total Protein 8.5 H Albumin 5.0 Lipase 273.4 Urine Color STRAW Urine Appearance SLIGHTLY-CLOUDY Urine pH 8.0 Ur Specific [place] 1.010 Urine Protein NEGATIVE Urine Glucose (UA) NEGATIVE Urine Ketones NEGATIVE Urine Blood NEGATIVE Urine Nitrite NEGATIVE Urine Bilirubin NEGATIVE Urine Urobilinogen NEGATIVE Ur Leukocyte Esterase NEGATIVE Urine RBC (Auto) 2 Urine Mucus (Auto) RARE Urine Ascorbic Acid NEGATIVE - Diagnostic Test Radiology reviewed: Image reviewed, Reports reviewed Discharge - Discharge Clinical Impression: Urinary symptom or sign, Renal cyst Low back pain Qualifiers: Chronicity: unspecified Back pain laterality: bilateral Sciatica presence: without sciatica Qualified Code(s): M54.5 - Low back pain Condition: Stable Disposition: HOME, SELF-CARE Instructions: Azithromycin ([facility]), Flank Pain ([facility]), Growth or Mass, Pending Workup ([facility]), Rocephin ([facility]) Additional Instructions: Return immediately for any new or worsening symptoms Followup with your primary care provider, call tomorrow to make a followup appointment Follow-up with urology for further evaluation of renal cyst as well as further evaluation of your flank pain. Ultrasound pending, we will call if you need any different treatment Prescriptions: Lidocaine [Lidoderm 5% (700 mg) Transdermal Patch] 1 patch TP DAILY PRN #10 adh..patch PRN Reason: Methocarbamol [Robaxin 500 Mg Tablet] 500 mg PO QID PRN #20 tablet PRN Reason: Forms: Return to Work Referrals: DANNI CORDON MD [Primary Care Provider] - Follow up as needed [facility] [Provider Group] - Follow up as needed Ronny GALINDO MD [ACTIVE STAFF] - Follow up as needed
[2019-03-01 14:41] VITALS: BP 146/92
[2019-03-01 15:07] LABS: CHLAM PCR NOT DETECTED (NOT DETECT)
--- NOTE | 2019-03-01 19:51 | EKG REPORT ---
SEVERITY:- ABNORMAL ECG - SINUS RHYTHM RIGHT BUNDLE BRANCH BLOCK LEFT VENTRICULAR HYPERTROPHY : Confirmed by: Krunal Martinez MD 01-Mar-2019 19:50:06
== END 2019-03-01 14:40 | disposition home or self-care (01) ==
LOC: ER 10:22
DX: N28.1 Cyst of kidney, acquired (principal); R10.9 Unspecified abdominal pain; R68.83 Chills (without fever); R39.198 Other difficulties with micturition; R30.0 Dysuria; M54.5 Low back pain; I10 Essential (primary) hypertension; Z88.6 Allergy status to analgesic agent
CPT/HCPCS: 93005; 99284; 96375; 96365; 36415; 83690; 85025; 80053; 81001; 87491; 87591; 74176; 93010; J3010; J2405; J0696

== ENCOUNTER 2019-11-24 10:24 | Emergency (ER) | payer OTHER ==
[2019-11-24 11:16] LABS: ABSOLUTE BASOPHILS # (AUTO) 0.1 10^3/uL (0.0-0.2); ABSOLUTE EOSINOPHILS # (AUTO) 0.1 10^3/uL (0.0-0.6); ABSOLUTE LYMPHOCYTES (AUTO) 1.9 10^3/uL (0.5-4.7); ABSOLUTE MONOCYTES (AUTO) 0.4 10^3/uL (0.1-1.4); ABSOLUTE NEUT (AUTO) 3.2 10^3/uL (1.7-8.2); EOSINOPHILS % (AUTO) 1.7 % (0-6); HEMATOCRIT 46.2 % (37.9-51.0); HEMOGLOBIN 16.4 g/dL (13.5-17.0); LYMPHOCYTES % (AUTO) 34.4 % (13-45); MEAN CORPUSCULAR HEMOGLOBIN 30.2 pg (27.0-33.4); MEAN CORPUSCULAR HGB CONC 35.5 g/dL (32.0-36.0); MEAN CORPUSCULAR VOLUME 85 fl (80-97); MONOCYTES % (AUTO) 6.4 % (3-13); PLATELET COUNT 288 10^3/uL (150-450); RED BLOOD COUNT 5.43 10^6/uL (4.35-5.55); RED CELL DISTRIBUTION WIDTH 13.8 % (11.5-14.0); SEGMENTED NEUTROPHILS % (AUTO) 56.5 % (42-78); TOTAL CELLS COUNTED % (AUTO) 100 %; WHITE BLOOD COUNT 5.6 10^3/uL (4.0-10.5)
[2019-11-24 11:33] LABS: ALBUMIN 5.1 g/dL (3.5-5.0); ALKALINE PHOSPHATASE 74 U/L (38-126); ANION GAP 12 (5-19); ASPARTATE AMINO TRANSFERASE 18 U/L (17-59); BILIRUBIN,DIRECT 0.2 mg/dL (0.0-0.4); BILIRUBIN,TOTAL 1.2 mg/dL (0.2-1.3); BLOOD UREA NITROGEN 20 mg/dL (7-20); CALCIUM 10.1 mg/dL (8.4-10.2); CARBON DIOXIDE 27 mmol/L (22-30); CHLORIDE 102 mmol/L (98-107); CREATINE KINASE 105 U/L (55-170); GLUCOSE 105 mg/dL (75-110); POTASSIUM 3.5 mmol/L (3.6-5.0); TOTAL PROTEIN 8.5 g/dL (6.3-8.2)
[2019-11-24 11:58] LABS: TROPONIN I < 0.012 ng/mL
--- NOTE | 2019-11-24 12:21 | ER Document Report ---
ED General - General Chief Complaint: Chest Pain Stated Complaint: ARM/CHEST PAIN Time Seen by Provider: 11/24/19 11:09 Primary Care Provider: DANNI CORDON MD [Primary Care Provider] - Follow up as needed TRAVEL OUTSIDE OF THE [place] IN LAST 30 DAYS: No - HPI Notes: Chief complaint: Bilateral shoulder pain and fatigue History of present illness: 44-year-old male presents for 1 week history intermittent pain both shoulders aggravated with exertion associated with fatigue. No nausea or vomiting. No cough or fever. No dyspnea. No diaphoresis. No known exposure to COVID. No recent travel. Patient has a history of hypertension and right bundle branch block. Also has history of hyperlipidemia. He was admitted here for chest pain approximately 2 years ago negative cardiac work-up. He subsequently had an outpatient functional study which was reportedly normal. In 2014 the patient had several episodes of SVT. He subsequently underwent a heart catheterization and ablation procedure at [facility]. He was told that his coronary vessels showed no significant obstructions at that time. Patient admits that he is usually noncompliant with his blood pressure medications. Also he has a history of obstructive sleep apnea and I recommended use of a BiPAP device but he says he has not used this in several years. Patient is not diabetic. Non-smoker. Family history of CAD. No known history of thromboembolic disease. HEART Score: HISTORY 1 ECG 0 AGE 1 RISK FACTORS 2 TROPONIN 0 TOTAL: 4 If HEART score is = 3 AND both tronponin measurments are normal, the 30 day risk of a major adverse cardiac event (all-cause mortality, myocardia infarction or need for coronary revscularization) is < 1% (Sensitivity 100%, NPV 100%). - Related Data Allergies/Adverse Reactions: ibuprofen [Ibuprofen] Allergy (Verified 11/24/19 10:50) Home Medications: losartan hctz. felodipine Past Medical History - General Information source: Patient, Friend, [facility] Records - Social History Smoking Status: Never Smoker Chew tobacco use (# tins/day): No Frequency of alcohol use: Social Drug Abuse: None Lives with: Spouse/Significant other Family History: CAD, DM, Hypertension, Other - Congestive heart failure - Past Medical History Cardiac Medical History: Reports: Hx Hypertension Pulmonary Medical History: Reports: Hx Sleep Apnea Renal/ Medical History: Denies: Hx Peritoneal Dialysis GI Medical History: Reports: Hx Gastroesophageal Reflux Disease Psychiatric Medical History: Denies: Hx Depression Past Surgical History: Reports: Hx Cardiac Surgery - SVT ablation - Immunizations Hx Diphtheria, Pertussis, Tetanus Vaccination: No Review of Systems - Review of Systems Notes: Constitutional: As per HPI. HENT: Negative for sore throat. Eyes: Negative for visual changes. Cardiovascular: As per HPI. Respiratory: Negative for shortness of breath. Gastrointestinal: Negative for abdominal pain, vomiting or diarrhea. Genitourinary: Negative for dysuria. Musculoskeletal: Negative for back pain. Skin: Negative for rash. Neurological: Negative for headaches, focal weakness or numbness. 10 point ROS negative except as marked above and in HPI. Physical Exam - Vital signs Vitals: Temp Pulse Resp BP Pulse Ox 97.9 F 91 20 169/88 H 100 11/24/19 10:33 11/24/19 10:33 11/24/19 10:33 11/24/19 10:33 11/24/19 10:33 - Notes Notes: GENERAL: Muscular middle-age male appearing in no acute distress. SKIN: Good turgor no rashes. HEAD: Normocephalic atraumatic. EYES: PERRLA. EOMI. Conjunctivae and sclerae clear. EARS: CANALS AND TMS CLEAR. NOSE: CLEAR. MOUTH: Moist mucosa. Good dentition. No stridor or edema. No drooling. NECK: Supple. No masses or thyromegaly. No adenopathy. Carotids 2+ without bruits. No JVD. BACK: Symmetrical without tenderness. CHEST: Respirations unlabored. Breath sounds clear and symmetrical. HEART: Regular rhythm. No murmur gallop or rub. ABDOMEN: Soft nontender without masses, organomegaly or rebound. Bowel sounds normally active. No bruits. GENITALIA: Deferred. EXTREMITIES: No edema. No calf tenderness. Cap refill less than 1.5 seconds. Dorsalis pedis and posterior tibial pulses 3+ and symmetrical. NEUROLOGICAL: GCS 15. Alert and oriented x3. Normal gait. Fluent speech. Cranial nerves II through XII intact. Sensorimotor and cerebellar normal. Normal tone. PSYCHIATRIC: Appropriate affect. Course - Re-evaluation Re-evalutation: 11/24/19 15:35 Two negative trop. 3 hrs. apart. No new EKG changes. Normal chest x-ray. Patient has had a previously negative heart cath 5 years ago and a negative functional study last year. Think he can be safely discharged for follow-up with cardiology. We will ask him to add aspirin daily to his routine. 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 He has had a nasal swab for COVID submitted and will self isolate at home for the next 72 hours until results of his COVID testing is reported. I will provide him a work note. Strongly encouraged to start using his CPAP again as his blood pressure suboptimally controlled and I think this is likely to be the underlying factor in his case. Findings, clinical impression and plan of treatment have been discussed with patient/family. Understanding of current findings and recommendations has been acknowledged by them and there is agreement regarding disposition and follow-up. - Vital Signs Vital signs: Temp Pulse Resp BP Pulse Ox 97.9 F 91 18 145/94 H 99 11/24/19 10:33 11/24/19 10:33 11/24/19 14:01 11/24/19 14:01 11/24/19 14:01 - Laboratory Result Diagrams: 11/24/19 11:06 11/24/19 11:06 Laboratory results interpreted by me: 11/24/19 11:06 Potassium 3.5 L Total Protein 8.5 H Albumin 5.1 H - EKG Interpretation by Me Additional EKG results interpreted by me: 11/24/19 12:24 Twelve-lead EKG reviewed by me contemporaneously: 1029 hrs. Indication for study: Shoulder pain Rhythm: Normal sinus Rate: 88 Intervals: QRS prolongation 158 ms QRS axis: -[address]/T wave changes: No acute changes Comparison with prior tracing: Unchanged compared with prior tracing 03/01/2019 Interpretation: Pre-existing right bundle branch block Discharge - Discharge Clinical Impression: Essential hypertension, Obstructive sleep apnea Shoulder pain Qualifiers: Chronicity: acute Laterality: bilateral Qualified Code(s): M25.511 - Pain in right shoulder; M25.512 - Pain in left shoulder Fatigue Qualifiers: Fatigue type: unspecified Qualified Code(s): R53.83 - Other fatigue Condition: Stable Disposition: HOME, SELF-CARE Instructions: Aspirin (Cardiac) ([facility]) Additional Instructions: Isolation at home for the next 3 days until we know the results of your COVID test. Work note is been provided for you. Contact your stable cleaner for further outpatient follow-up as soon as possible. Take 1 aspirin tablet daily. Stay on your other regular medications. Return here as needed for new or worsening symptoms: Pain that is worsening or unimproved Shortness of breath Uncontrolled vomiting High fever or shaking chills Overall worsening Forms: Return to Work Referrals: DANNI CORDON MD [Primary Care Provider] - Follow up as needed
--- NOTE | 2019-11-24 12:54 | RADIOLOGY REPORT (SQ) ---
EXAM DESCRIPTION: CHEST SINGLE VIEW IMAGES COMPLETED DATE/TIME: 11/24/2019 12:29 pm REASON FOR STUDY: cp COMPARISON: AP chest 06/21/2017 EXAM PARAMETERS: NUMBER OF VIEWS: One view. TECHNIQUE: Single frontal radiographic view of the chest acquired. RADIATION DOSE: NA LIMITATIONS: None. FINDINGS: LUNGS AND PLEURA: No opacities, masses or pneumothorax. No pleural effusion. MEDIASTINUM AND HILAR STRUCTURES: No masses. Contour normal. HEART AND VASCULAR STRUCTURES: Heart normal in size. Normal vasculature. BONES: No acute findings. HARDWARE: None in the chest. OTHER: No other significant finding. IMPRESSION: NO ACUTE RADIOGRAPHIC FINDING IN THE CHEST. TECHNICAL DOCUMENTATION: JOB ID: [id number] 2010 [employer]- All Rights Reserved Reading location - IP/workstation name: [id number]
[2019-11-24 14:17] VITALS: BP 145/94
--- NOTE | 2019-11-24 20:20 | EKG REPORT ---
SEVERITY:- ABNORMAL ECG - SINUS RHYTHM RIGHT BUNDLE BRANCH BLOCK CONSIDER INFERIOR INFARCT : Confirmed by: Candis Lopez MD 24-Nov-2019 20:19:34
== END 2019-11-24 16:00 | disposition home or self-care (01) ==
LOC: ER 10:24
DX: I10 Essential (primary) hypertension (principal); G47.33 Obstructive sleep apnea (adult) (pediatric); M25.511 Pain in right shoulder; M25.512 Pain in left shoulder; R53.83 Other fatigue; R07.9 Chest pain, unspecified; Z20.828 Contact with and (suspected) exposure to other viral communicable diseases
CPT/HCPCS: 93005; 99285; 36415; 82553; 82550; 85025; 87635; 80053; 84484; 71045; 93010; C9803

== ENCOUNTER 2020-03-13 11:07 | Emergency (ER) | payer OTHER ==
[2020-03-13] MEDS ORDERED: MORPHINE SULFATE 10 MG/ML INJ IV ONE (13:35)
[2020-03-13] MEDS ORDERED: ONDANSETRON HCL INJ/PF 4 MG/2 ML SDV IV ONE (13:35)
--- NOTE | 2020-03-13 13:35 | ER Document Report ---
ED Medical Screen (RME) - General Chief Complaint: Abdominal Pain Stated Complaint: ABDOMINAL PAIN Time Seen by Provider: 03/13/20 13:31 Primary Care Provider: DANNI CORDON MD [Primary Care Provider] - Follow up as needed Notes: HPI: 44-year-old male with history of hypertension presenting for fevers and chills over the last 6 days with generalized abdominal pain. Patient also reports issues with his hemorrhoids. No dysuria. Has had some nausea no vomiting. No diarrhea PHYSICAL EXAMINATION: Mild tenderness through the left abdomen on palpation. Appears mildly uncomfortable. States he did take his blood pressure medication today I have greeted and performed a rapid initial assessment of this patient. A comprehensive ED assessment and evaluation of the patient, analysis of test results and completion of medical decision making process will be conducted by an additional ED providers. Please note that clinical decision making for this patient was made during the 2019 pandemic of novel coronavirus which caused a significant strain on the healthcare system including at this particular facility. Criteria for admission discharge and level of care decisions as well as treatment decisions have necessarily changed TRAVEL OUTSIDE OF THE [place] IN LAST 30 DAYS: No - Related Data Allergies/Adverse Reactions: ibuprofen [Ibuprofen] Allergy (Verified 11/24/19 10:50) Past Medical History - Past Medical History Cardiac Medical History: Reports: Hx Hypertension Pulmonary Medical History: Reports: Hx Sleep Apnea Renal/ Medical History: Denies: Hx Peritoneal Dialysis GI Medical History: Reports: Hx Gastroesophageal Reflux Disease Psychiatric Medical History: Denies: Hx Depression Past Surgical History: Reports: Hx Cardiac Surgery - SVT ablation - Immunizations Hx Diphtheria, Pertussis, Tetanus Vaccination: No Physical Exam - Vital signs Vitals: Temp Pulse Resp BP Pulse Ox 98.7 F 111 H 20 204/113 H 98 03/13/20 11:36 03/13/20 11:36 03/13/20 11:36 03/13/20 11:36 03/13/20 11:36 Course - Vital Signs Vital signs: Temp Pulse Resp BP Pulse Ox 98.7 F 111 H 20 204/113 H 98 03/13/20 11:36 03/13/20 11:36 03/13/20 11:36 03/13/20 11:36 03/13/20 11:36 Doctor's Discharge - Discharge Referrals: DANNI CORDON MD [Primary Care Provider] - Follow up as needed
[2020-03-13 14:47] LABS: ABSOLUTE BASOPHILS # (AUTO) 0.1 10^3/uL (0.0-0.2); ABSOLUTE LYMPHOCYTES (AUTO) 1.5 10^3/uL (0.5-4.7); ABSOLUTE MONOCYTES (AUTO) 0.8 10^3/uL (0.1-1.4); ABSOLUTE NEUT (AUTO) 7.2 10^3/uL (1.7-8.2); BASOPHILS % (AUTO) 0.8 % (0-2); HEMATOCRIT 45.8 % (37.9-51.0); LYMPHOCYTES % (AUTO) 15.7 % (13-45); MEAN CORPUSCULAR HEMOGLOBIN 29.5 pg (27.0-33.4); MEAN CORPUSCULAR HGB CONC 34.9 g/dL (32.0-36.0); MEAN CORPUSCULAR VOLUME 85 fl (80-97); PLATELET COUNT 250 10^3/uL (150-450); RED BLOOD COUNT 5.41 10^6/uL (4.35-5.55); RED CELL DISTRIBUTION WIDTH 14.3 % (11.5-14.0); SEGMENTED NEUTROPHILS % (AUTO) 75.5 % (42-78); TOTAL CELLS COUNTED % (AUTO) 100 %; WHITE BLOOD COUNT 9.5 10^3/uL (4.0-10.5)
[2020-03-13 15:02] LABS: APPEARANCE,URINE CLEAR; BILIRUBIN,URINE NEGATIVE (NEGATIVE); COLOR,URINE YELLOW; GLUCOSE, URINE NEGATIVE (NEGATIVE); KETONES,URINE TRACE mg/dL (NEGATIVE); LEUKOCYTE ESTERASE,URINE NEGATIVE (NEGATIVE); NITRITE,URINE NEGATIVE (NEGATIVE); PROTEIN,URINE 100 mg/dL (NEGATIVE); URINE SPECIFIC GRAVITY 1.026
[2020-03-13 15:16] LABS: ALBUMIN 4.9 g/dL (3.5-5.0); ALKALINE PHOSPHATASE 70 U/L (38-126); ANION GAP 11 (5-19); ASPARTATE AMINO TRANSFERASE 29 U/L (17-59); BILIRUBIN,DIRECT 0.3 mg/dL (0.0-0.4); BILIRUBIN,TOTAL 1.1 mg/dL (0.2-1.3); BLOOD UREA NITROGEN 18 mg/dL (7-20); CALCIUM 10.1 mg/dL (8.4-10.2); CARBON DIOXIDE 34 mmol/L (22-30); CHLORIDE 96 mmol/L (98-107); GLUCOSE 125 mg/dL (75-110); TOTAL PROTEIN 8.6 g/dL (6.3-8.2)
--- NOTE | 2020-03-13 16:51 | RADIOLOGY REPORT (SQ) ---
EXAM DESCRIPTION: CT ABD/PELVIS WITH IV ONLY IMAGES COMPLETED DATE/TIME: 03/13/2020 4:28 pm REASON FOR STUDY: abd pain LLQ COMPARISON: 03/01/2019 TECHNIQUE: CT scan of the abdomen and pelvis performed using helical scanning technique with dynamic intravenous contrast injection. No oral contrast. Images reviewed with lung, soft tissue, and bone windows. Reconstructed coronal and sagittal MPR images reviewed. Delayed images for evaluation of the urinary system also acquired. All images stored on PACS. All CT scanners at this facility use dose modulation, iterative reconstruction, and/or weight based d osing when appropriate to reduce radiation dose to as low as reasonably achievable (ALARA). [facility]: Dose Right [facility]: CareDose [facility]: Dose Right [facility]: Teradose 4D [facility]: [employer] CONTRAST TYPE AND DOSE: contrast/concentration: Isovue 350.00 mmol/ml; Total Contrast Delivered: 100 .0 ml; Total Saline Delivered: 61.0 ml RENAL FUNCTION: Cr 1.17 RADIATION DOSE: CT Rad equipment meets quality standard of care and radiation dose reduction techniq ues were employed. CTDIvol: 12.3 - 17.1 mGy. DLP: 1600 mGy-cm.. LIMITATIONS: None. FINDINGS: LOWER CHEST: Patchy area of consolidation and ground-glass attenuation within the left low er lobe measuring 3.0 cm x 2.7 cm. Few smaller additional areas of ground-glass attenuation within t he left lung base. LIVER: Normal size. No masses. No dilated ducts. SPLEEN: Normal size. No focal lesions. PANCREAS: No masses. No significant calcifications. No adjacent inflammation or peripancreatic fluid collections. Pancreatic duct not dilated. GALLBLADDER: No identified stones by CT criteria. No inflammatory changes to suggest cholecystitis. ADRENAL GLANDS: No significant masses or asymmetry. RIGHT KIDNEY AND URETER: No solid masses. No significant calcifications. No hydronephrosis or hyd roureter. LEFT KIDNEY AND URETER: No solid masses. Small exophytic cyst. No significant calcifications. No hydronephrosis or hydroureter. AORTA AND VESSELS: No aneurysm. No dissection. Renal arteries, SMA, celiac without stenosis. RETROPERITONEUM: No retroperitoneal adenopathy, hemorrhage or masses. BOWEL AND PERITONEAL CAVITY: No masses or inflammatory changes. No free fluid or peritoneal masses. APPENDIX: Normal. PELVIS: No mass. No free fluid. Normal bladder. ABDOMINAL WALL: Small fat containing left inguinal hernia. No subcutaneous masses. BONES: No acute bony abnormality. No suspicious lytic or blastic osseous lesions. OTHER: No other significant finding. IMPRESSION: 1. Area patchy consolidation ground-glass attenuation within the left lower lobe sugges tive of infectious/inflammatory process. Viral pneumonia is included in the differential. 2. No other evidence of acute intra-abdominal/pelvic process. TECHNICAL DOCUMENTATION: JOB ID: [id number] Quality ID # [id number]: Final reports with documentation of one or more dose reduction techniques (e.g., Au tomated exposure control, adjustment of the mA and/or kV according to patient size, use of iterative reconstruction technique) 2010 [employer]- All Rights Reserved Reading location - IP/workstation name: [email or web address]
[2020-03-13] MEDS ORDERED: NORMAL SALINE 1000 ML 1,000 ML IV ONE (17:40)
[2020-03-13] MEDS ORDERED: ACETAMINOPHEN 325 MG TABLET PO ONE (17:40)
--- NOTE | 2020-03-13 17:47 | ER Document Report ---
ED General - General Chief Complaint: Abdominal Pain Stated Complaint: ABDOMINAL PAIN Time Seen by Provider: 03/13/20 13:31 Primary Care Provider: DANNI CORDON MD [ACTIVE STAFF] - Follow up as needed TRAVEL OUTSIDE OF THE [place] IN LAST 30 DAYS: No - HPI Notes: Patient is a 44-year-old male who presents emergency department for evaluation. He has had 6 days of fevers and chills. Over the last 24 hours he developed lower abdominal pain. Is sharp and stabbing. He also states he is had hemorrhoidal pain. He has last bowel movement was 2 days ago. It was normal. He has had no cough or shortness of breath. He denies any anosmia or difficulty with sense of taste. He has had some nausea but no emesis. No diarrhea. - Related Data Allergies/Adverse Reactions: ibuprofen [Ibuprofen] Allergy (Verified 03/13/20 14:36) Home Medications: felodipine, losartan, hctz Past Medical History - General Information source: Patient - Social History Smoking Status: Never Smoker Frequency of alcohol use: None Drug Abuse: None Family History: CAD, DM, Hypertension, Other - Congestive heart failure Patient has homicidal ideation: No - Past Medical History Cardiac Medical History: Reports: Hx Congestive Heart Failure, Hx Hypertension Pulmonary Medical History: Reports: Hx Sleep Apnea Renal/ Medical History: Denies: Hx Peritoneal Dialysis GI Medical History: Reports: Hx Gastroesophageal Reflux Disease Psychiatric Medical History: Denies: Hx Depression Past Surgical History: Reports: Hx Cardiac Surgery - SVT ablation - Immunizations Hx Diphtheria, Pertussis, Tetanus Vaccination: No Review of Systems - Review of Systems Constitutional: See HPI EENT: No symptoms reported Cardiovascular: No symptoms reported Respiratory: No symptoms reported Gastrointestinal: See HPI Genitourinary: No symptoms reported Musculoskeletal: No symptoms reported Skin: No symptoms reported Neurological/Psychological: No symptoms reported Physical Exam - Vital signs Vitals: Temp Pulse Resp BP Pulse Ox 98.7 F 111 H 20 204/113 H 98 03/13/20 11:36 03/13/20 11:36 03/13/20 11:36 03/13/20 11:36 03/13/20 11:36 - Notes Notes: Vital signs reviewed, please refer to chart. Head is normocephalic, atraumatic. Pupils equal round, reactive to light. Neck is supple without meningismus. Heart is tachycardic with normal S1-S2. Lungs are clear to auscultation bilaterally. Abdomen is soft, nontender, normoactive bowel sounds throughout. Extremities without cyanosis, clubbing. Posterior calves are nontender. Perip heral pulses are equal. Skin is warm and dry. Patient is awake, alert, neurological exam is nonfocal. Rectal exam is performed with ASCENCION Colin, present in the room. There is a small amount of brown stool noted at the rectum. There is some small external skin tags consistent with hemorrhoids, but no significant swollen hemorrhoidal tissue is visualized at this time. No fluctuance or induration noted. Course - Re-evaluation Re-evalutation: 03/13/20 17:45 Patient presents emergency department for evaluation. He was initially seen through triage. He had laboratory investigations and imaging is ordered, as well as Zofran and morphine. His symptoms of well improved. At the time of my evaluation the temperature of the patient was climbing and his heart rate was elevated. I suspect this is secondary to fever. His lab work is largely unremarkable. His CT scan showed groundglass opacities consistent with likely Covid infection. Given his symptoms I believe that is the likely diagnosis. The patient was notified of this as well as his need to quarantine at home. He was told that other family members should quarantine as well. I gave him IV fluids, Tylenol. I will send him home with nausea medication. In regards to his hemorrhoids I will prescribe Anusol cream. I do not see any significant signs of thrombosis or surrounding infection. He was counseled on his elevated blood pressure and the need for this to be followed up as well. We talked about the increased risk of heart attack, stroke, and other causes of morbidity/mortality with elevated blood pressure and he voiced understanding. Otherwise he is to return to the ED with worsening or new concerning symptoms of any sort, follow-up closely with his primary care provider. - Vital Signs Vital signs: Temp Pulse Resp BP Pulse Ox 99.2 F 100 18 150/98 H 98 03/13/20 18:00 03/13/20 18:00 03/13/20 18:00 03/13/20 18:00 03/13/20 18:00 - Laboratory Results Result Diagrams: 03/13/20 14:25 03/13/20 14:25 Laboratory Results Interpreted: 03/13/20 03/13/20 03/13/20 14:25 14:25 14:25 RDW 14.3 H Chloride 96 L Carbon Dioxide 34 H Glucose 125 H Total Protein 8.6 H Urine Protein 100 H Urine Ketones TRACE H Urine Urobilinogen 2.0 H Urine Ascorbic Acid 40 H Critical Laboratory Results Reviewed: No Critical Results - Radiology Results Critical Radiology Results Reviewed: No Critical Results Discharge - Discharge Clinical Impression: Person under investigation for COVID-19, Lower abdominal pain Fever Qualifiers: Encounter type: initial encounter Hypertension Qualifiers: Hypertension type: unspecified Qualified Code(s): I10 - Essential (primary) hypertension Hemorrhoids Qualifiers: Hemorrhoid type: unspecified Qualified Code(s): K64.9 - Unspecified hemorrhoids Condition: Stable Disposition: HOME, SELF-CARE Instructions: COVID-19 Guidance for Persons Under Investigation, Abdominal Pain ([facility]), Hemorrhoids ([facility]) Additional Instructions: Your findings today are most consistent with COVID-19 infection. Please quar antine at home, other members of your health social quarantine as well. Zofran as needed for nausea. Use Anusol cream for your pain. Use [id number] medications as needed for symptom management, including Tylenol for fever. If you develop shortness of breath, or new or concerning symptoms of any sort, please return immediately to the emergency department for reevaluation. Your blood pressure was markedly elevated here in the emergency department today. This was likely secondary to your pain, but this should be followed up closely by your primary care provider. Prescriptions: Hydrocortisone [Anusol-Hc] 30 gm TP BID #1 cream..g. Ondansetron [Zofran Odt 4 mg Tablet] 1 - 2 tab PO Q4H PRN #15 tab.rapdis PRN Reason: For Nausea/Vomiting Forms: Elevated Blood Pressure Referrals: DANNI CORDON MD [ACTIVE STAFF] - Follow up as needed
[2020-03-13 20:14] VITALS: BP 150/98
== END 2020-03-13 19:18 | disposition home or self-care (01) ==
LOC: ER 11:07
DX: U07.1 COVID-19 (principal); I11.0 Hypertensive heart disease with heart failure; I50.9 Heart failure, unspecified; K64.9 Unspecified hemorrhoids; R10.9 Unspecified abdominal pain; R10.30 Lower abdominal pain, unspecified; R11.0 Nausea; Z79.899 Other long term (current) drug therapy; Z88.8 Allergy status to other drugs, medicaments and biological substances
CPT/HCPCS: 99285; 96361; 96374; 96375; 36415; 83690; 85025; 87635; 80053; 81001; 74177; J2270; J2405; J7030; C9803

== ENCOUNTER 2020-03-19 06:46 | Emergency (ER) | payer OTHER ==
--- OUTSIDE RECORDS SUMMARY | 2020-03-19 07:45 | XMS REPORT ---
:1975 Author Organization [facility] Address [facility] [address] [place] [address] Care Team Providers Name Role Phone Unavailable Unavailable Unavailable Allergies, Adverse Reactions, Alerts This patient has no known allergies or adverse reactions. Medications This patient has no known medications. Problems This patient has no known problems. Procedures This patient has no known procedures. Results Test Description Test Time Test Comments Text Results Atomic Results Result Comments SARS-CoV-2 RNA Resp Ql KIARA+probe 2020-03-15 00:00:00 Test Item Value Reference Range Comments SARS-CoV-2 RNA Resp Ql KIARA+probe Detected [facility] Case ID: (test code = 12282-0) [id number] SARS-CoV-2 RNA Resp Ql [id number] 00:00:00 Test Item Value Reference Range Comments SARS-CoV-2 RNA Resp Ql Detected [facility] Case ID: KIARA+probe (test code = [id number] [id number]) SARS-CoV-2 RNA Resp Ql [id number] 00:00:00 Test Item Value Reference Range Comments SARS-CoV-2 RNA Resp Ql Not detected [facility] Case KIARA+probe (test code = ID: [id number]) Social History This patient has no known social history. Vital Signs This patient has no known vital signs.
[2020-03-19] MEDS ORDERED: NORMAL SALINE 1000 ML 1,000 ML IV ONE ×2 (08:04→09:16)
[2020-03-19] MEDS ORDERED: MORPHINE SULFATE 10 MG/ML INJ IV ONE ×2 (08:07→12:54)
[2020-03-19] MEDS ORDERED: ONDANSETRON HCL INJ/PF 4 MG/2 ML SDV IV ONE ×2 (08:07→12:55)
[2020-03-19] MEDS ORDERED: VANCOMYCIN HCL INJ 1000 MG VIAL IV ONE (08:08)
[2020-03-19] MEDS ORDERED: CEFEPIME 2 GM/D5W RTU 2 GM/50 ML RTUPB IV ONE (08:11)
[2020-03-19 08:42] LABS: ABSOLUTE BASOPHILS # (AUTO) 0.1 10^3/uL (0.0-0.2); ABSOLUTE LYMPHOCYTES (AUTO) 0.9 10^3/uL (0.5-4.7); ABSOLUTE MONOCYTES (AUTO) 1.1 10^3/uL (0.1-1.4); ABSOLUTE NEUT (AUTO) 5.4 10^3/uL (1.7-8.2); BASOPHILS % (AUTO) 0.8 % (0-2); EOSINOPHILS % (AUTO) 0.1 % (0-6); HEMATOCRIT 42.1 % (37.9-51.0); HEMOGLOBIN 14.6 g/dL (13.5-17.0); LYMPHOCYTES % (AUTO) 11.9 % (13-45); MEAN CORPUSCULAR HGB CONC 34.8 g/dL (32.0-36.0); MEAN CORPUSCULAR VOLUME 84 fl (80-97); MONOCYTES % (AUTO) 15.2 % (3-13); PLATELET COUNT 295 10^3/uL (150-450); RED BLOOD COUNT 5.04 10^6/uL (4.35-5.55); RED CELL DISTRIBUTION WIDTH 13.9 % (11.5-14.0); TOTAL CELLS COUNTED % (AUTO) 100 %; WHITE BLOOD COUNT 7.4 10^3/uL (4.0-10.5)
[2020-03-19 08:48] LABS: ALBUMIN 4.3 g/dL (3.5-5.0); ALKALINE PHOSPHATASE 65 U/L (38-126); ANION GAP 10 (5-19); ASPARTATE AMINO TRANSFERASE 75 U/L (17-59); BILIRUBIN,DIRECT 0.3 mg/dL (0.0-0.4); BILIRUBIN,TOTAL 0.8 mg/dL (0.2-1.3); BLOOD UREA NITROGEN 27 mg/dL (7-20); CALCIUM 9.6 mg/dL (8.4-10.2); CARBON DIOXIDE 31 mmol/L (22-30); CHLORIDE 98 mmol/L (98-107); GLUCOSE 102 mg/dL (75-110); POTASSIUM 3.6 mmol/L (3.6-5.0); TOTAL PROTEIN 7.6 g/dL (6.3-8.2)
[2020-03-19 09:44] LABS: VENOUS BLOOD BASE EXCESS 2.6 mmol/L; VENOUS BLOOD HCO3 28.8 mmol/L (20-32); VENOUS BLOOD PCO2 50.7 mmHg (35-63); VENOUS BLOOD PH 7.37 (7.30-7.42)
--- NOTE | 2020-03-19 09:47 | RADIOLOGY REPORT (SQ) ---
EXAM DESCRIPTION: U/S EXTREMITY NONVASCULAR LTD IMAGES COMPLETED DATE/TIME: 03/19/2020 8:55 am REASON FOR STUDY: left buttock abscess COMPARISON: None. TECHNIQUE: Dynamic and static grayscale images acquired of the localized site of clinical concern an d recorded on PACS. Additional selected color Doppler and spectral images recorded. SITE OF CONCERN: Gluteal cleft LIMITATIONS: None. FINDINGS: SKIN AND SUBCUTANEOUS TISSUES: There is a 5 x 4 x 4 mm complex cystic area within the subc utaneous soft tissues. DEEP SOFT TISSUES/MUSCLES: There is a 2.0 x 1.9 x 1.7 cm collection demonstrating mobile internal ech ogenicity within the deep soft tissues. VASCULAR: No increased or decreased vascularity. No occlusions. OTHER: No other significant finding. IMPRESSION: Complex fluid collections likely representing abscesses. TECHNICAL DOCUMENTATION: JOB ID: [id number] 2010 [employer]- All Rights Reserved Reading location - IP/workstation name: [email or web address]
--- NOTE | 2020-03-19 10:58 | RADIOLOGY REPORT (SQ) ---
EXAM DESCRIPTION: CHEST SINGLE VIEW IMAGES COMPLETED DATE/TIME: 03/19/2020 10:47 am REASON FOR STUDY: covid positive/decreased breaths in bases COMPARISON: 11/24/2019 EXAM PARAMETERS: NUMBER OF VIEWS: One view. TECHNIQUE: Single frontal radiographic view of the chest acquired. RADIATION DOSE: NA LIMITATIONS: None. FINDINGS: LUNGS AND PLEURA: Very subtle patchy airspace opacities involving predominantly the lung b ases. No focal consolidation, pleural effusion, or pneumothorax. MEDIASTINUM AND HILAR STRUCTURES: No masses. Contour normal. HEART AND VASCULAR STRUCTURES: Heart normal in size. Normal vasculature. BONES: No acute findings. HARDWARE: None in the chest. OTHER: No other significant finding. IMPRESSION: Given history of COVID positive testing, subtle findings are consistent with multi lobar atypical pneumonia. TECHNICAL DOCUMENTATION: JOB ID: [id number] 2010 [employer]- All Rights Reserved Reading location - IP/workstation name: [email or web address]
[2020-03-19 11:01] LABS: APPEARANCE,URINE CLEAR; BILIRUBIN,URINE NEGATIVE (NEGATIVE); COLOR,URINE YELLOW; GLUCOSE, URINE NEGATIVE (NEGATIVE); KETONES,URINE NEGATIVE (NEGATIVE); LEUKOCYTE ESTERASE,URINE NEGATIVE (NEGATIVE); NITRITE,URINE NEGATIVE (NEGATIVE); PROTEIN,URINE NEGATIVE (NEGATIVE); URINE SPECIFIC GRAVITY 1.011; UROBILINOGEN,URINE NEGATIVE mg/dL (<2.0)
--- NOTE | 2020-03-19 11:01 | RADIOLOGY REPORT (SQ) ---
EXAM DESCRIPTION: CT ABD/PELVIS WITH IV ONLY IMAGES COMPLETED DATE/TIME: 03/19/2020 9:34 am REASON FOR STUDY: left buttock abscess COMPARISON: CT abdomen and pelvis 03/13/2020 TECHNIQUE: CT scan of the abdomen and pelvis performed using helical scanning technique with dynamic intravenous contrast injection. No oral contrast. Images reviewed with lung, soft tissue, and bone windows. Reconstructed coronal and sagittal MPR images reviewed. Delayed images for evaluation of the urinary system also acquired. All images stored on PACS. All CT scanners at this facility use dose modulation, iterative reconstruction, and/or weight based d osing when appropriate to reduce radiation dose to as low as reasonably achievable (ALARA). [facility]: Dose Right [facility]: CareDose [facility]: Dose Right [facility]: Teradose 4D [facility]: [employer] Powertrain CONTRAST TYPE AND DOSE: contrast/concentration: Isovue 300.00 mmol/ml; Total Contrast Delivered: 99. 0 ml; Total Saline Delivered: 70.0 ml RENAL FUNCTION: GFR > 60. RADIATION DOSE: CT Rad equipment meets quality standard of care and radiation dose reduction techniq ues were employed. CTDIvol: 9.9 - 14.2 mGy. DLP: 1425 mGy-cm.. LIMITATIONS: None. FINDINGS: LOWER CHEST: Patchy peripheral ground-glass opacities in the lower lungs bilaterally have increased since prior. Previously demonstrated focal consolidation is not included on this examinati on. LIVER: Liver has normal size and contour. No focal hepatic mass. Hepatic and portal veins are paten t. No biliary ductal dilation. SPLEEN: Normal size. No focal lesions. PANCREAS: No masses. No significant calcifications. No adjacent inflammation or peripancreatic fluid collections. Pancreatic duct not dilated. GALLBLADDER: No identified stones by CT criteria. No inflammatory changes to suggest cholecystitis. ADRENAL GLANDS: No significant masses or asymmetry. RIGHT KIDNEY AND URETER: No solid masses. No significant calcifications. No hydronephrosis or hyd roureter. LEFT KIDNEY AND URETER: Normal size and position. Exophytic renal cortical cyst is unchanged. Small parapelvic cyst is also unchanged. No solid renal mass. No significant calcifications. No hydro nephrosis or hydroureter. AORTA AND VESSELS: No aneurysm. No dissection. Renal arteries, SMA, celiac without stenosis. RETROPERITONEUM: No retroperitoneal adenopathy, hemorrhage or masses. BOWEL AND PERITONEAL CAVITY: No bowel obstruction. No bowel wall thickening. No significant inflamm atory change. No ascites or pneumoperitoneum. APPENDIX: Normal. PELVIS: No mass. No free fluid. Normal bladder. ABDOMINAL WALL: Small fat containing left inguinal hernia unchanged. BONES: No significant or acute findings. OTHER: There is subcutaneous gas in the medial left perianal gluteal soft tissue measuring about 1.7 x 0.7 cm. This extends to the anal opening and may represent a perianal abscess with possible fistul a. No focal drainable fluid. No evidence of involvement of the intraperitoneal rectum. IMPRESSION: Small perianal abscess the left medial gluteal fold. 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 TECHNICAL DOCUMENTATION: JOB ID: [id number] Quality ID # [id number]: Final reports with documentation of one or more dose reduction techniques (e.g., Au tomated exposure control, adjustment of the mA and/or kV according to patient size, use of iterative reconstruction technique) 2010 [employer]- All Rights Reserved Reading location - IP/workstation name: [email or web address]
[2020-03-19 11:11] LABS: URINE AMPHETAMINES SCREEN NEGATIVE; URINE BARBITURATES SCREEN NEGATIVE; URINE BENZODIAZEPINES SCREEN NEGATIVE; URINE COCAINE SCREEN NEGATIVE; URINE MARIJUANA (THC) SCREEN NEGATIVE; URINE METHADONE SCREEN NEGATIVE; URINE PHENCYCLIDINE SCREEN NEGATIVE
[2020-03-19 13:33] VITALS: BP 128/78
--- NOTE | 2020-03-19 14:58 | ER Document Report ---
Entered by REINIER LE SCRIBE 03/19/20 0733 Acting as scribe for:HEMA SERRATO MD ED Skin Rash/Insect Bite/Abscs - General Chief Complaint: Abscess Stated Complaint: COVID POSITIVE/INFECTION ON BACK [facility] Provider: [facility] [[facility]] - Follow up as needed Mode of Arrival: Ambulatory Information source: Patient Notes: This 44 year old male patient with a history of hemorrhoids presents to the ED today with complaints of an abscess on his left buttock that developed x6 days ago. Patient reports that he was seen here on 03/13 with hemorrhoidal pain and tested positive for COVID at that time. He states that the abscess is now draining pus and blood. He reports that his last bowel movement was x3 days ago because he has been "scared to eat" due to the pain. He does note subjective fevers. TRAVEL OUTSIDE OF THE [place] IN LAST 30 DAYS: No - Related Data Allergies/Adverse Reactions: ibuprofen [Ibuprofen] Allergy (Verified 03/19/20 06:53) Home Medications: LOSARTAN. HCTZ Past Medical History - General Information source: Patient, [facility] Records - Social History Smoking Status: Never Smoker Cigarette use (# per day): No Chew tobacco use (# tins/day): No Smoking Education Provided: No Frequency of alcohol use: None Family History: Reviewed & Not Pertinent, CAD, DM, Hypertension, Other - Congestive heart failure Patient has homicidal ideation: Yes - Past Medical History Cardiac Medical History: Reports: Hx Atrial Fibrillation, Hx Congestive Heart Failure, Hx Hypertension Pulmonary Medical History: Reports: Hx Sleep Apnea GI Medical History: Reports: Hx Gastroesophageal Reflux Disease Past Surgical History: Reports: Hx Cardiac Surgery - SVT ablation - Immunizations Hx Diphtheria, Pertussis, Tetanus Vaccination: No Review of Systems - Review of Systems Constitutional: See HPI, Fever, Recent illness EENT: No symptoms reported Cardiovascular: No symptoms reported Respiratory: No symptoms reported Gastrointestinal: See HPI, Constipation Genitourinary: No symptoms reported Male Genitourinary: No symptoms reported Musculoskeletal: No symptoms reported Skin: See HPI, Other - Abscess Hematologic/Lymphatic: No symptoms reported Neurological/Psychological: No symptoms reported -: Yes All other systems reviewed and negative Physical Exam - Vital signs Vitals: Temp Pulse Resp BP Pulse Ox 98.8 F 120 H 18 153/84 H 99 03/19/20 06:51 03/19/20 06:51 03/19/20 06:51 03/19/20 06:51 03/19/20 06:51 - General General appearance: Alert In distress: None - HEENT Head: Normocephalic, Atraumatic Eyes: Normal Extraocular movements intact: Yes Pupils: PERRL Neck: Normal, Supple - Respiratory Respiratory status: No respiratory distress Chest status: Nontender Breath sounds: Normal Chest palpation: Normal - Cardiovascular Rhythm: Regular, Tachycardia Heart sounds: Normal auscultation Murmur: No Friction rub: No Gallop: None auscultated - Abdominal Inspection: Normal Distension: No distension Bowel sounds: Normal Tenderness: Nontender - Abdomen soft Organomegaly: No organomegaly - Rectal Notes: Scale Technician present during rectal exam. There is an abscess actively draining with yellow malodorous exudate and a 20 x 5 cm area of induration on the left medial buttock. This area is very tender to palpation and warm to the touch. - Back Back: Normal, Nontender - Extremities General upper extremity: Normal inspection General lower extremity: Normal inspection. No: Edema - Neurological Neuro grossly intact: Yes Orientation: AAOx4 [place] Coma Scale Eye Opening: Spontaneous Alan Coma Scale Verbal: Oriented Alan Coma Scale Motor: Obeys Commands [place] Coma Scale Total: 15 - Psychological Associated symptoms: Normal affect, Normal mood - Skin Skin Temperature: Warm Skin Moisture: Dry Skin Color: Normal Course - Re-evaluation Re-evalutation: 03/19/20 14:40 Patient reports that his buttock abscess and pain has decreased in size and he is improving as it drains exudative yellow pus. 03/19/20 14:44 As discussed this case was was presented to Dr. García and with the sinus tract draining on its own there is no need for any surgical intervention. Patient is to be discharged home on antibiotics and sitz bath as needed on a daily basis. Follow-up in the office with Dr. García in about 14 days post his Covid positive status at this time. - Vital Signs Vital signs: Temp Pulse Resp BP Pulse Ox 98.8 F 120 H 16 128/78 H 93 03/19/20 06:51 03/19/20 06:51 03/19/20 13:01 03/19/20 13:01 03/19/20 13:01 03/19/20 14:41 Vital signs as above pulse 120 blood pressure 128/78 pulse ox 93% afebrile. - Laboratory Results Result Diagrams: 03/19/20 08:00 03/19/20 08:00 Laboratory Results Interpreted: 03/19/20 03/19/20 08:00 08:00 Lymph % (Auto) 11.9 L [place] % (Auto) 15.2 H Carbon Dioxide 31 H BUN 27 H Creatinine 1.52 H Est GFR (MDRD) Non-Af 50 L AST 75 H ALT 103 H Extremity Ultrasound 03/19/20 08:05 IMPRESSION: Complex fluid collections likely representing abscesses. Abdomen/Pelvis CT 03/19/20 09:16 IMPRESSION: Small perianal abscess the left medial gluteal fold. This does track to the anal opening and may represent a perianal fistula. Chest X-Ray 03/19/20 09:19 IMPRESSION: Given history of COVID positive testing, subtle findings are consistent with multi lobar atypical pneumonia. X-ray chest shows multilobar atypical pneumonia subtle findings and consistent with patient's history of Covid positive testing 6 days ago. Abdomen and pelvis CT shows small perianal abscess in the left gluteal fold this does track to the anal opening and may represent a perianal fistula. This case was discussed with Dr. García surgeon account liaison today and the plan is for patient to be discharged home to take antibiotics for 10-day course and to follow-up in the office within 14 days inasmuch as patient is Covid positive at this time. Ultrasound of buttock shows a complex fluid collection likely representing abscesses. 03/19/20 14:43 Labs- Entire Visit 03/19/20 03/19/20 03/19/20 08:00 08:00 08:00 WBC 7.4 RBC 5.04 Hgb 14.6 Hct 42.1 MCV 84 MCH 29.0 MCHC 34.8 RDW 13.9 Plt Count 295 Lymph % (Auto) 11.9 L [place] % (Auto) 15.2 H Eos % (Auto) 0.1 Baso % (Auto) 0.8 Absolute Neuts (auto) 5.4 Absolute Lymphs (auto) 0.9 Absolute Monos (auto) 1.1 Absolute Eos (auto) 0.0 Absolute Basos (auto) 0.1 Seg Neutrophils % 72.0 VBG pH VBG pCO2 VBG HCO3 VBG Base Excess Sodium 138.9 Potassium 3.6 Chloride 98 Carbon Dioxide 31 H Anion Gap 10 BUN 27 H Creatinine 1.52 H Est GFR ( Amer) > 60 Est GFR (MDRD) Non-Af 50 L Glucose 102 Lactic Acid 1.2 Calcium 9.6 Total Bilirubin 0.8 Direct Bilirubin 0.3 Neonat Total Bilirubin Not Reportable Neonat Direct Bilirubin Not Reportable Neonat Indirect Bili Not Reportable AST 75 H ALT 103 H Alkaline Phosphatase 65 Total Protein 7.6 Albumin 4.3 Urine Color Urine Appearance Urine pH Ur Specific [place] Urine Protein Urine Glucose (UA) Urine Ketones Urine Blood Urine Nitrite Urine Bilirubin Urine Urobilinogen Ur Leukocyte Esterase Urine WBC (Auto) Urine RBC (Auto) U Hyaline Cast (Auto) Urine Mucus (Auto) Urine Ascorbic Acid POC Stool Occult Blood Urine Opiates Screen Urine Methadone Screen Ur Barbiturates Screen Ur Phencyclidine Scrn Ur Amphetamines Screen U Benzodiazepines Scrn Urine Cocaine Screen U Marijuana (THC) Screen 03/19/20 03/19/20 03/19/20 09:15 10:30 10:30 WBC RBC Hgb Hct MCV MCH MCHC RDW Plt Count Lymph % (Auto) [place] % (Auto) Eos % (Auto) Baso % (Auto) Absolute Neuts (auto) Absolute Lymphs (auto) Absolute Monos (auto) Absolute Eos (auto) Absolute Basos (auto) Seg Neutrophils % VBG pH 7.37 VBG pCO2 50.7 VBG HCO3 28.8 VBG Base Excess 2.6 Sodium Potassium Chloride Carbon Dioxide Anion Gap BUN Creatinine Est GFR ( Amer) Est GFR (MDRD) Non-Af Glucose Lactic Acid Calcium Total Bilirubin Direct Bilirubin Neonat Total Bilirubin Neonat Direct Bilirubin Neonat Indirect Bili AST ALT Alkaline Phosphatase Total Protein Albumin Urine Color YELLOW Urine Appearance CLEAR Urine pH 7.0 Ur Specific [place] 1.011 Urine Protein NEGATIVE Urine Glucose (UA) NEGATIVE Urine Ketones NEGATIVE Urine Blood NEGATIVE Urine Nitrite NEGATIVE Urine Bilirubin NEGATIVE Urine Urobilinogen NEGATIVE Ur Leukocyte Esterase NEGATIVE Urine WBC (Auto) 1 Urine RBC (Auto) 3 U Hyaline Cast (Auto) 1 Urine Mucus (Auto) RARE Urine Ascorbic Acid NEGATIVE POC Stool Occult Blood Urine Opiates Screen UNCONFIRMED POSITIVE Urine Methadone Screen NEGATIVE Ur Barbiturates Screen NEGATIVE Ur Phencyclidine Scrn NEGATIVE Ur Amphetamines Screen NEGATIVE U Benzodiazepines Scrn NEGATIVE Urine Cocaine Screen NEGATIVE U Marijuana (THC) Screen NEGATIVE 03/19/20 14:24 WBC RBC Hgb Hct MCV MCH MCHC RDW Plt Count Lymph % (Auto) [place] % (Auto) Eos % (Auto) Baso % (Auto) Absolute Neuts (auto) Absolute Lymphs (auto) Absolute Monos (auto) Absolute Eos (auto) Absolute Basos (auto) Seg Neutrophils % VBG pH VBG pCO2 VBG HCO3 VBG Base Excess Sodium Potassium Chloride Carbon Dioxide Anion Gap BUN Creatinine Est GFR ( Amer) Est GFR (MDRD) Non-Af Glucose Lactic Acid Calcium Total Bilirubin Direct Bilirubin Neonat Total Bilirubin Neonat Direct Bilirubin Neonat Indirect Bili AST ALT Alkaline Phosphatase Total Protein Albumin Urine Color Urine Appearance Urine pH Ur Specific [place] Urine Protein Urine Glucose (UA) Urine Ketones Urine Blood Urine Nitrite Urine Bilirubin Urine Urobilinogen Ur Leukocyte Esterase Urine WBC (Auto) Urine RBC (Auto) U Hyaline Cast (Auto) Urine Mucus (Auto) Urine Ascorbic Acid POC Stool Occult Blood POSITIVE Urine Opiates Screen Urine Methadone Screen Ur Barbiturates Screen Ur Phencyclidine Scrn Ur Amphetamines Screen U Benzodiazepines Scrn Urine Cocaine Screen U Marijuana (THC) Screen Critical Laboratory Results Reviewed: No Critical Results - Radiology Results Radiology Results Interpreted: 03/19/20 12:03 Extremity Ultrasound 03/19/20 08:05 IMPRESSION: Complex fluid collections likely representing abscesses. Abdomen/Pelvis CT 03/19/20 09:16 IMPRESSION: Small perianal abscess the left medial gluteal fold. This does track to the anal opening and may represent a perianal fistula. Chest X-Ray 03/19/20 09:19 IMPRESSION: Given history of COVID positive testing, subtle findings are consistent with multi lobar atypical pneumonia. Critical Radiology Results Reviewed: No Critical Results - Consults Dr. García, Surgicalist Time consulted: 14:28 Discharge - Discharge Clinical Impression: Left buttock abscess, Anal fistula, Lab test positive for detection of COVID-19 virus Condition: Stable Disposition: HOME, SELF-CARE Instructions: Abscess ([facility]), Trimethoprim-Sulfa ([facility]) Additional Instructions: Abscess You have an abscess (boil). This a pus-forming infection, usually due to staph. Some boils may be left to drain on their own, but most require lancing. From the time the tender lump first appears, it may be three or four days before the abscess is ready to avis. Local heat and rest help at this stage of treatment. An antibiotic may prevent spread of the infection. Once the abscess is opened, packing may be placed into it. This is done so pus is not sealed inside by premature closure of the cavity. The packing will be removed at your follow-up visit or you may be advised to remove it yourself at home. Sometimes this packing must be replaced a few times during healing. The wound will heal with surprisingly little scar. Depending on the size and location of an abscess, healing can take one to four weeks. You may shower and wash the area around the incision site two or three times a day. Antibiotics may be prescribed, but are usually not necessary after an abscess has been drained. If you develop fever, chilling, worsening pain, or increasing swelling in the area, call the doctor or return immediately. Recommend you begin sitz baths at least 3 times a day as needed to her for accelerating and helping your buttock abscess draining and to dry up.. Also begin antibiotics as prescribed. You have been placed on hydrocodone during the early stages of your treatment of your abscess. Due to your COVID-19 and the fact that your abscess is draining on its own there is no need for any surgical intervention at this time. Please follow-up with Dr. García we have written his name is a follow-up on your chart and you should call his office to see if you can get an appointment within 14 days. Prescriptions: Amoxicillin/Potassium Clav [Augmentin 875-125 Tablet] 1 tab PO BID #28 tab Sulfamethoxazole/Trimethoprim [Bactrim Ds Tablet] 1 tab PO BID #28 tablet Hydrocodone/Acetaminophen [[place] 10-325 mg Tablet] 1 tab PO TID PRN #10 tablet PRN Reason: prn severe pain Referrals: [facility] [Primary [facility]] - Follow up as needed ANGELES GARCÍA MD [ACTIVE STAFF] - Follow up as needed (Follow up in 2 weeks) I personally performed the services described in the documentation, reviewed and edited the documentation which was dictated to the scribe in my presence, and it accurately records my words and actions.
== END 2020-03-19 15:00 | disposition home or self-care (01) ==
LOC: ER 06:46
DX: L02.31 Cutaneous abscess of buttock (principal); K60.3 Anal fistula; U07.1 COVID-19; K59.00 Constipation, unspecified; Z79.899 Other long term (current) drug therapy; Z88.8 Allergy status to other drugs, medicaments and biological substances; I48.91 Unspecified atrial fibrillation; I11.0 Hypertensive heart disease with heart failure; I50.9 Heart failure, unspecified
CPT/HCPCS: 96376; 99285; 96361; 96375; 96365; 96367; 36415; 87040; 87070; 87205; 83605; 85025; 82270; 87075; 87077; 80053; 81001; 87186; 80307; 82803; 71045; 76882; 74177; J2270; J2405; J7030; J3370; J0692